=== PATIENT | male | born 1940 | race Caucasian/White ===

== ENCOUNTER 2017-12-04 17:04 | Inpatient (IN) | payer MEDICARE, BC ==
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
[2017-12-04] MEDS ORDERED: HYDROmorphone 2 MG/ML SDV IM ONE (18:03)
[2017-12-04] MEDS ORDERED: HYDROmorphone 2 MG/ML Syringe ONE (18:09)
[2017-12-04] MEDS ORDERED: Cyclobenzaprine 10 MG Tab PO STA (18:56)
--- NOTE | 2017-12-04 19:36 | CT ---
CLINICAL DATA: Back pain. LUMBAR SPINE CT, 2017: Multislice acquisition from T11 to S3 was performed. Axial images and sagittal and coronal reformations are reviewed. There is slight anterior wedging of the T12 vertebra. This is most likely chronic. The remaining vertebrae are of average height. No acute fracture or dislocation. There is a hemilaminectomy defect at the L4 and L5 levels on the right. There is annular bulging of the L1-2, L2-3, and L3-4 discs. There is mild facet joint hypertrophy at all 3 levels. No significant central or foraminal stenosis. There is slight anterolisthesis of L4 on L5. There is minimal annular bulging of the L4-5 disc. There is facet joint hypertrophy at this level. There is mild neural foramen stenosis bilaterally. There is facet joint hypertrophy at the L5-S1 level. There is mild neural foramen stenosis on the right and moderately severe neural foramen stenosis on the left. There are degenerative changes involving the SI joints bilaterally. No other lytic or blastic bone lesions. No other significant findings. Job: [id number] [facility]
[2017-12-04] MEDS: Non-Formulary Medication 1 Each (Allopurinol [Zyloprim] 100 MG) PO SCH (21:22)
[2017-12-04] MEDS: Non-Formulary Medication 1 Each (Furosemide [Lasix] 40 MG) PO SCH (21:22)
[2017-12-04] MEDS: Non-Formulary Medication 1 Each (Losartan [Cozaar] 50 MG) PO SCH (21:23)
[2017-12-05] MEDS ORDERED: Cyclobenzaprine 10 MG Tab ONE (04:19)
[2017-12-05] MEDS: HYDROmorphone 2 MG/ML SDV IM PRN ×3 (04:26→17:45)
[2017-12-05] MEDS: Non-Formulary Medication 1 Each (Furosemide [Lasix] 40 MG) PO SCH (08:09)
[2017-12-05] MEDS: Non-Formulary Medication 1 Each (Allopurinol [Zyloprim] 100 MG) PO SCH ×3 (08:09→20:20)
[2017-12-05] MEDS: Non-Formulary Medication 1 Each (Hydralazine [Apresoline] 50 MG) PO SCH (08:10)
[2017-12-05] MEDS: Non-Formulary Medication 1 Each (Losartan [Cozaar] 50 MG) PO SCH ×2 (08:10→20:20)
[2017-12-05] MEDS: Non-Formulary Medication 1 Each (Warfarin [Coumadin] 5 MG) PO SCH (08:10)
--- NOTE | 2017-12-05 09:43 | PCM.PN ---
- General Info Date of Service: 12/05/17 Subjective Update: Pt claims he still hurts over the lower back. Last night was able to get out of the bed and stand on the bed side and weight bear. But today he claims his left lower back has been hurting, more so with movement. No tinging or numbness in the lower extremities. No weakness. Functional Status: Reports: Pain Controlled, Tolerating Diet, Urinating. Denies : Ambulating - Review of Systems General: Denies: Fever, Weakness, Fatigue, Malaise HEENT: Denies: Sinus Congestion, Sore Throat Pulmonary: Denies: Sputum, Hemoptysis, Wheezing Cardiovascular: Denies: Chest Pain, Lightheadedness Gastrointestinal: Denies: Abdominal Pain, Nausea, Vomiting Genitourinary: Denies: Dysuria, Frequency, Incontinence Musculoskeletal: Reports: Back Pain. Denies: Leg Pain, Foot Pain Skin: Denies: Bruising, Pruritis, Rash Neurological: Denies: Confusion, Dizziness, Headache, Numbness, Tingling - Patient Data Vitals - Most Recent: Last Vital Signs Temp 98 F 12/05/17 08:49 Pulse 62 12/05/17 08:49 Resp 20 12/05/17 08:49 BP 168/66 H 12/05/17 08:49 Pulse Ox 98 12/05/17 08:49 Med Orders - Current: Current Medications Hydromorphone HCl (Dilaudid) 1 mg IM Q6HR PRN PRN Reason: Pain Last Admin: 12/05/17 04:26 Dose: 1 mg Non-Formulary Medication (Allopurinol [Zyloprim]) 100 mg PO TID [facility] Last Admin: 12/05/17 08:09 Dose: 100 mg Non-Formulary Medication (Furosemide [Lasix]) 40 mg PO BID [facility] Last Admin: 12/04/17 21:22 Dose: 40 mg Non-Formulary Medication (Hydralazine [Apresoline]) 50 mg PO DAILY [facility] Last Admin: 12/05/17 08:10 Dose: 50 mg Non-Formulary Medication (Losartan [Cozaar]) 50 mg PO BID [facility] Last Admin: 12/05/17 08:10 Dose: 50 mg Non-Formulary Medication (Warfarin [Coumadin]) 5 mg PO DAILY [facility] Last Admin: 12/05/17 08:10 Dose: 5 mg Discontinued Medications Cyclobenzaprine HCl (Flexeril) 10 mg PO TID [facility] Stop: 12/04/17 18:57 Last Admin: 12/05/17 04:27 Dose: 10 mg Cyclobenzaprine HCl (Flexeril) Confirm Administered Dose 10 mg .ROUTE .STK-MED ONE Stop: 12/05/17 04:20 Last Admin: 12/05/17 07:56 Dose: Not Given Hydromorphone HCl (Dilaudid) 2 mg IM ONETIME ONE Stop: 12/04/17 18:04 Last Admin: 12/04/17 18:05 Dose: 2 mg Hydromorphone HCl (Dilaudid) Confirm Administered Dose 2 mg .ROUTE .STK-MED ONE Stop: 12/04/17 18:10 Last Admin: 12/04/17 18:07 Dose: Not Given - Exam Quality Assessment: Supplemental Oxygen General: Alert, Oriented, Other (morbidly obese) HEENT: Pupils Equal, Pupils Reactive, EOMI, Mucous Membr. Moist/[place] Neck: Supple Lungs: Clear to Auscultation, Normal Respiratory Effort Cardiovascular: Regular Rate, Regular Rhythm Back Exam: Normal Inspection, Full Range of Motion, Paraspinal Tenderness ( lumbar paravertebral tenderness and overt he left SI joint today.), Other (Does have old scar over lumbar spine.). No: CVA Tenderness (R), CVA Tenderness (L), Vertebral Tenderness - Problem List & Annotations (1) Acute low back pain SNOMED Code(s): 040795628 Code(s): M54.5 - LOW BACK PAIN Status: Acute Current Visit: Yes - Problem List Review Problem List Initiated/Reviewed/Updated: Yes - My Orders Last 24 Hours: My Active Orders 12/04/17 18:45 Patient Status [ADT] Routine Bedrest Bedside Commode [RC] ASDIRECTED Height and Weight [RC] UPON Oxygen Therapy [RC] VTE/DVT Education [RC] Per Unit Routine Vital Signs [RC] Q4H PT Evaluation and Treatment [CONS] Routine Resuscitation Status Routine 12/04/17 18:51 Intake and Output [RC] 12/04/17 18:53 HYDROmorphone [Dilaudid] 1 mg IM Q6HR PRN 12/05/17 08:00 Allopurinol [Zyloprim] 100 mg PO TID Furosemide [Lasix] 40 mg PO BID Losartan [Cozaar] 50 mg PO BID Warfarin [Coumadin] 5 mg PO DAILY hydrALAZINE [Apresoline] 50 mg PO DAILY - Assessment Assessment:: Mechanical low back pain- Acute - Plan Plan:: Pt has been on dilaudid and flexeril. The pain severity is so high with movement or weight bearing, that patient is not able to sit up or ambulate yet. His morbid obesity might be a factor with his mobility.He does not have any acute bony injury or neurological injury, appears very much mechanical pain asso with general deconditioning of his body.Will have physical therapy evaluate patient today. Will followup with PT recommendations.
[2017-12-05] MEDS ORDERED: Furosemide 20 MG Tab PO ONE (10:00)
[2017-12-05] MEDS: Furosemide 40 MG Tab **OWN MED PO SCH (18:52)
[2017-12-06] MEDS: Non-Formulary Medication 1 Each (Losartan [Cozaar] 50 MG) PO SCH ×2 (08:06→19:54)
[2017-12-06] MEDS: Non-Formulary Medication 1 Each (Warfarin [Coumadin] 5 MG) PO SCH (08:06)
[2017-12-06] MEDS: Non-Formulary Medication 1 Each (Hydralazine [Apresoline] 50 MG) PO SCH (08:09)
[2017-12-06] MEDS: Non-Formulary Medication 1 Each (Allopurinol [Zyloprim] 100 MG) PO SCH ×3 (08:09→19:54)
[2017-12-06] MEDS: Furosemide 40 MG Tab **OWN MED PO SCH ×3 (08:09→16:21)
[2017-12-06] MEDS: HYDROmorphone 2 MG/ML SDV IM PRN ×2 (08:16→18:19)
--- NOTE | 2017-12-06 08:33 | PCM.PN ---
- General Info Date of Service: 12/06/17 Subjective Update: Pt claims that yesterday he was able to work with physical therapy, did try to walk with walker few step. His back hurts when he stand and walks, but no weakness in the extremities. Pain medications helping.Rates his pain at 4/10 Also he has not had bowel movement in the past 2 days. Functional Status: Reports: Pain Controlled, Tolerating Diet, Ambulating, Urinating - Review of Systems General: Denies: Fever, Weakness, Fatigue, Malaise HEENT: Denies: Headaches, Sinus Congestion, Sore Throat Pulmonary: Denies: Shortness of Breath, Sputum, Hemoptysis Cardiovascular: Denies: Chest Pain, Lightheadedness Gastrointestinal: Reports: Flatus. Denies: Abdominal Pain, Constipation, Nausea , Vomiting Genitourinary: Denies: Dysuria, Frequency Musculoskeletal: Reports: Back Pain. Denies: Leg Pain, Foot Pain, Joint Pain, Joint Swelling Skin: Denies: Bruising, Pruritis, Rash - Patient Data Vitals - Most Recent: Last Vital Signs Temp 98 F 12/06/17 06:00 Pulse 87 12/06/17 06:00 Resp 18 12/06/17 06:00 BP 148/74 H 12/06/17 06:00 Pulse Ox 97 12/06/17 06:00 Weight - Most Recent: 120.769 kg I&O - Last 24 Hours: Intake & Output 12/05/17 12/06/17 12/06/17 22:59 06:59 14:59 Intake Total 1080 550 Output Total 700 1300 Balance 380 -750 Med Orders - Current: Current Medications Cyclobenzaprine HCl (Flexeril) 10 mg PO TID [facility] Furosemide (Lasix) [facility] Last Admin: 12/06/17 08:09 Dose: 40 mg Hydromorphone HCl (Dilaudid) 1 mg IM Q6HR PRN PRN Reason: Pain Last Admin: 12/06/17 08:16 Dose: 1 mg Non-Formulary Medication (Allopurinol [Zyloprim]) 100 mg PO TID [facility] Last Admin: 12/06/17 08:09 Dose: 100 mg Non-Formulary Medication (Hydralazine [Apresoline]) 50 mg PO DAILY [facility] Last Admin: 12/06/17 08:09 Dose: 50 mg Non-Formulary Medication (Losartan [Cozaar]) 50 mg PO BID [facility] Last Admin: 12/06/17 08:06 Dose: 50 mg Non-Formulary Medication (Warfarin [Coumadin]) 5 mg PO DAILY [facility] Last Admin: 12/06/17 08:06 Dose: 2.5 mg Discontinued Medications Cyclobenzaprine HCl (Flexeril) 10 mg PO TID [facility] Stop: 12/04/17 18:57 Last Admin: 12/05/17 04:27 Dose: 10 mg Cyclobenzaprine HCl (Flexeril) Confirm Administered Dose 10 mg .ROUTE .STK-MED ONE Stop: 12/05/17 04:20 Last Admin: 12/05/17 07:56 Dose: Not Given Furosemide (Lasix) 20 mg PO ONETIME ONE Stop: 12/05/17 10:01 Last Admin: 12/05/17 10:39 Dose: 20 mg Hydromorphone HCl (Dilaudid) 2 mg IM ONETIME ONE Stop: 12/04/17 18:04 Last Admin: 12/04/17 18:05 Dose: 2 mg Hydromorphone HCl (Dilaudid) Confirm Administered Dose 2 mg .ROUTE .STK-MED ONE Stop: 12/04/17 18:10 Last Admin: 12/04/17 18:07 Dose: Not Given Non-Formulary Medication (Furosemide [Lasix]) 40 mg PO BID [facility] Last Admin: 12/05/17 08:09 Dose: Not Given - Exam Quality Assessment: Supplemental Oxygen General: Alert, Oriented HEENT: Pupils Equal, Pupils Reactive, EOMI, Mucous Membr. Moist/[place] Neck: Supple Lungs: Clear to Auscultation, Normal Respiratory Effort Cardiovascular: Regular Rate, Regular Rhythm GI/Abdominal Exam: Normal Bowel Sounds, Soft, Non-Tender, No Organomegaly, No Distention, No Abnormal Bruit, No Mass, Pelvis Stable Back Exam: Normal Inspection, Full Range of Motion, Paraspinal Tenderness ( lumbasr paraspinal tenderness). No: CVA Tenderness (R), CVA Tenderness (L) Extremities: Normal Inspection, No Pedal Edema, Normal Capillary Refill Peripheral Pulses: 2+: Posterior Tibial (L), Posterior Tibial (R) Skin: Warm, Intact - Problem List & Annotations (1) Acute low back pain SNOMED Code(s): 858948812 Code(s): M54.5 - LOW BACK PAIN Status: Acute Current Visit: Yes - Problem List Review Problem List Initiated/Reviewed/Updated: Yes - My Orders Last 24 Hours: My Active Orders 12/05/17 08:00 Allopurinol [Zyloprim] 100 mg PO TID Losartan [Cozaar] 50 mg PO BID Warfarin [Coumadin] 5 mg PO DAILY hydrALAZINE [Apresoline] 50 mg PO DAILY 12/05/17 19:00 Furosemide [Lasix] 40 mg PO BIDDIURETIC 12/06/17 08:24 Admission Status [Patient Status] [ADT] Routine 12/06/17 14:00 Cyclobenzaprine [Flexeril] 10 mg PO TID - Assessment Assessment:: Mechanical low back pain- Acute - Plan Plan:: Pt has been on dilaudid and flexeril. The pain severity is so high with movement or weight bearing, that patient is not able to sit up or ambulate yet. His morbid obesity might be a factor with his mobility.He does not have any acute bony injury or neurological injury, appears very much mechanical pain asso with general deconditioning of his body.Will have physical therapy evaluate patient today. Will followup with PT recommendations. 12/06/17 Rate his pain at 4/10. still not able to get up on his own, needs help and has been able to stand and weight bear with walker. Will changes him to full admit for pain control. Also he is constipated from narcotic pain medication. Will give him one dose of senna and start dulcolax at bedtime. Continue physical therapy.
[2017-12-06] MEDS: Cyclobenzaprine 10 MG Tab PO SCH ×3 (08:34→19:54)
[2017-12-06] MEDS ORDERED: Sennosides 8.6 MG Tab ONE (14:34)
[2017-12-06] MEDS: Allopurinol 100 MG Tab ONE (14:43)
[2017-12-06] MEDS: Acetaminophen/HYDROcodone 325-5 MG Tab PO SCH (19:54)
[2017-12-07] MEDS: Acetaminophen/HYDROcodone 325-5 MG Tab PO SCH ×4 (02:00→20:04)
[2017-12-07] MEDS: Cyclobenzaprine 10 MG Tab PO SCH ×3 (07:35→20:05)
[2017-12-07] MEDS: Furosemide 40 MG Tab **OWN MED PO SCH ×2 (07:35→14:32)
[2017-12-07] MEDS ORDERED: Warfarin 5 MG Tab ONE (08:10)
[2017-12-07] MEDS ORDERED: hydrALAZINE 25 MG Tab ONE (08:10)
[2017-12-07] MEDS ORDERED: Losartan 50 MG Tab ONE ×2 (08:10→20:13)
[2017-12-07] MEDS ORDERED: Warfarin 2.5 MG Tab ONE (08:11)
[2017-12-07] MEDS ORDERED: Allopurinol 100 MG Tab ONE ×3 (08:11→20:12)
[2017-12-07] MEDS: Non-Formulary Medication 1 Each (Hydralazine [Apresoline] 50 MG) PO SCH (08:15)
[2017-12-07] MEDS: Non-Formulary Medication 1 Each (Losartan [Cozaar] 50 MG) PO SCH ×2 (08:15→20:14)
[2017-12-07] MEDS: Non-Formulary Medication 1 Each (Allopurinol [Zyloprim] 100 MG) PO SCH ×3 (08:15→20:14)
[2017-12-07] MEDS: Non-Formulary Medication 1 Each (Warfarin [Coumadin] 5 MG) PO SCH (08:15)
--- NOTE | 2017-12-07 11:40 | PCM.PN ---
- General Info Date of Service: 12/07/17 Subjective Update: Pt is sitting in the chair today. he claims that his pain is at 2.10 when he is sitting, any kind of movement make the pain worse and rate close to 8/10 yet. he just had his morning pain meds and flexeril. Has been doing the physical therapy exercises. Needs assistance with ambulation and using the bathroom. Did have bowel movement yesterday. tolerating diet well. Functional Status: Reports: Pain Controlled, Tolerating Diet, Ambulating, Urinating - Review of Systems General: Denies: Fever, Weakness, Fatigue HEENT: Denies: Sinus Congestion, Sore Throat Pulmonary: Denies: Shortness of Breath, Sputum, Hemoptysis Cardiovascular: Denies: Chest Pain, Lightheadedness Gastrointestinal: Denies: Abdominal Pain, Constipation, Hematochezia, Nausea, Vomiting Genitourinary: Denies: Dysuria, Frequency Musculoskeletal: Reports: Back Pain. Denies: Arm Pain, Hand Pain, Leg Pain, Joint Pain, Joint Swelling Skin: Denies: Bruising, Pruritis, Rash Neurological: Denies: Confusion, Dizziness, Headache - Patient Data Vitals - Most Recent: Last Vital Signs Temp 97.8 F 12/07/17 09:16 Pulse 63 12/07/17 09:16 Resp 20 12/07/17 09:16 BP 154/82 H 12/07/17 09:16 Pulse Ox 96 12/07/17 09:16 Weight - Most Recent: 121.291 kg I&O - Last 24 Hours: Intake & Output 12/06/17 12/07/17 12/07/17 22:59 06:59 14:59 Intake Total 250 Output Total 425 1000 Balance -425 -750 Med Orders - Current: Current Medications Hydrocodone Bitart/Acetaminophen ([place] 325-5 Mg) 1 tab PO Q6H [facility] Last Admin: 12/07/17 07:35 Dose: 1 tab Bisacodyl (Dulcolax) 10 mg PO BEDTIME JEFFREY Cyclobenzaprine HCl (Flexeril) 10 mg PO TID [facility] Last Admin: 12/07/17 07:35 Dose: 10 mg Furosemide (Lasix) 40 mg PO BIDDIURETIC [facility] Last Admin: 12/07/17 07:35 Dose: 40 mg Hydromorphone HCl (Dilaudid) 1 mg IM Q6HR PRN PRN Reason: Pain Last Admin: 12/06/17 18:19 Dose: 1 mg Non-Formulary Medication (Allopurinol [Zyloprim]) 100 mg PO TID [facility] Last Admin: 12/07/17 08:15 Dose: 100 mg Non-Formulary Medication (Hydralazine [Apresoline]) 50 mg PO DAILY [facility] Last Admin: 12/07/17 08:15 Dose: 50 mg Non-Formulary Medication (Losartan [Cozaar]) 50 mg PO BID [facility] Last Admin: 12/07/17 08:15 Dose: 50 mg Non-Formulary Medication (Warfarin [Coumadin]) 5 mg PO DAILY [facility] Last Admin: 12/07/17 08:15 Dose: 5 mg Discontinued Medications Allopurinol (Zyloprim) Confirm Administered Dose 100 mg .ROUTE .STK-MED ONE Stop: 12/06/17 14:37 Last Admin: 12/06/17 14:43 Dose: Not Given Allopurinol (Zyloprim) Confirm Administered Dose 100 mg .ROUTE .STK-MED ONE Stop: 12/07/17 08:12 Last Admin: 12/07/17 09:08 Dose: Not Given Cyclobenzaprine HCl (Flexeril) 10 mg PO TID STA Stop: 12/04/17 18:57 Last Admin: 12/05/17 04:27 Dose: 10 mg Cyclobenzaprine HCl (Flexeril) Confirm Administered Dose 10 mg .ROUTE .STK-MED ONE Stop: 12/05/17 04:20 Last Admin: 12/05/17 07:56 Dose: Not Given Furosemide (Lasix) 20 mg PO ONETIME ONE Stop: 12/05/17 10:01 Last Admin: 12/05/17 10:39 Dose: 20 mg Hydralazine HCl (Apresoline) Confirm Administered Dose 50 mg .ROUTE .STK-MED ONE Stop: 12/07/17 08:11 Last Admin: 12/07/17 09:08 Dose: Not Given Hydromorphone HCl (Dilaudid) 2 mg IM ONETIME ONE Stop: 12/04/17 18:04 Last Admin: 12/04/17 18:05 Dose: 2 mg Hydromorphone HCl (Dilaudid) Confirm Administered Dose 2 mg .ROUTE .STK-MED ONE Stop: 12/04/17 18:10 Last Admin: 12/04/17 18:07 Dose: Not Given Losartan Potassium (Cozaar) Confirm Administered Dose 50 mg .ROUTE .STK-MED ONE Stop: 12/07/17 08:11 Last Admin: 12/07/17 09:08 Dose: Not Given Non-Formulary Medication (Furosemide [Lasix]) 40 mg PO BID [facility] Last Admin: 12/05/17 08:09 Dose: Not Given Senna (Senna) Confirm Administered Dose 8.6 mg .ROUTE .STK-MED ONE Stop: 12/06/17 14:35 Last Admin: 12/06/17 14:38 Dose: 8.6 mg Senna/Docusate Sodium (Senna Plus) 1 tab PO ONETIME ONE Stop: 12/06/17 08:40 Last Admin: 12/06/17 14:40 Dose: 1 tab Senna/Docusate Sodium (Senna Plus) 1 tab PO DAILY JEFFREY Stop: 12/06/17 12:00 Last Admin: 12/06/17 14:41 Dose: Not Given Warfarin Sodium (Coumadin) Confirm Administered Dose 5 mg .ROUTE .STK-MED ONE Stop: 12/07/17 08:11 Last Admin: 12/07/17 09:08 Dose: Not Given Warfarin Sodium (Coumadin) Confirm Administered Dose 2.5 mg .ROUTE .STK-MED ONE Stop: 12/07/17 08:12 Last Admin: 12/07/17 09:08 Dose: Not Given - Exam Quality Assessment: Supplemental Oxygen General: Alert, Oriented, Other (obese) HEENT: Pupils Equal, Pupils Reactive, EOMI, Mucous Membr. Moist/[place] Neck: Supple Lungs: Clear to Auscultation, Normal Respiratory Effort Cardiovascular: Regular Rate, Regular Rhythm GI/Abdominal Exam: Normal Bowel Sounds, Soft, Non-Tender, No Organomegaly, No Distention, No Abnormal Bruit, No Mass, Pelvis Stable Back Exam: Normal Inspection, Full Range of Motion, Decreased Range of Motion, Paraspinal Tenderness (lumbar worse on left side. ). No: CVA Tenderness (R), CVA Tenderness (L) Extremities: Normal Inspection, Normal Range of Motion, Non-Tender, No Pedal Edema, Normal Capillary Refill - Problem List & Annotations (1) Acute low back pain SNOMED Code(s): 961337983 Code(s): M54.5 - LOW BACK PAIN Status: Acute Current Visit: Yes - Problem List Review Problem List Initiated/Reviewed/Updated: Yes - My Orders Last 24 Hours: My Active Orders 12/06/17 14:00 Cyclobenzaprine [Flexeril] 10 mg PO TID 12/06/17 20:00 Acetaminophen/HYDROcodone [[place] 325-5 MG] 1 tab PO Q6H 12/07/17 20:00 Bisacodyl [Dulcolax] 10 mg PO BEDTIME - Assessment Assessment:: Mechanical low back pain- Acute - Plan Plan:: Pt has been on dilaudid and flexeril. The pain severity is so high with movement or weight bearing, that patient is not able to sit up or ambulate yet. His morbid obesity might be a factor with his mobility.He does not have any acute bony injury or neurological injury, appears very much mechanical pain asso with general deconditioning of his body.Will have physical therapy evaluate patient today. Will followup with PT recommendations. 12/06/17 Rate his pain at 4/10. still not able to get up on his own, needs help and has been able to stand and weight bear with walker. Will changes him to full admit for pain control. Also he is constipated from narcotic pain medication. Will give him one dose of senna and start dulcolax at bedtime. Continue physical therapy. 12/07/17 Pt has been feeling better. rate 2/10 while resting and get to 8/10 with movement. he has had bowel movement. Have started him on oral vicodin and will have dilaudid im as needed. Also has been started on flexeril 10mg TID. Pain seems to be getting under control. Encouraged patient to continue to do therapy. he still needs assistance with ambulation.
[2017-12-07] MEDS: Bisacodyl 5 MG Tab PO SCH (20:05)
[2017-12-08] MEDS: Acetaminophen/HYDROcodone 325-5 MG Tab PO SCH ×4 (02:12→19:41)
[2017-12-08] MEDS ORDERED: hydrALAZINE 25 MG Tab ONE (08:02)
[2017-12-08] MEDS ORDERED: Losartan 50 MG Tab ONE (08:02)
[2017-12-08] MEDS ORDERED: Warfarin 5 MG Tab ONE (08:02)
[2017-12-08] MEDS ORDERED: Allopurinol 100 MG Tab ONE ×2 (08:03→13:58)
[2017-12-08] MEDS: Cyclobenzaprine 10 MG Tab PO SCH ×3 (08:05→19:40)
[2017-12-08] MEDS: Furosemide 40 MG Tab **OWN MED PO SCH ×2 (08:05→16:25)
[2017-12-08] MEDS: Non-Formulary Medication 1 Each (Warfarin [Coumadin] 5 MG) PO SCH (08:05)
[2017-12-08] MEDS: Non-Formulary Medication 1 Each (Losartan [Cozaar] 50 MG) PO SCH ×2 (08:05→19:41)
[2017-12-08] MEDS: Non-Formulary Medication 1 Each (Allopurinol [Zyloprim] 100 MG) PO SCH ×3 (08:05→19:40)
[2017-12-08] MEDS: Non-Formulary Medication 1 Each (Hydralazine [Apresoline] 50 MG) PO SCH (08:05)
--- NOTE | 2017-12-08 10:09 | PCM.PN ---
- General Info Date of Service: 12/08/17 Subjective Update: Pt claims he is feeling better. Was able to walk to bath room and back, but his pain goes from 2/10 to 7-8/10 by the time he is back in the bed. But better while resting. Claims he has been feeling better, has got better mobility then he came in. No weakness or tingling in his legs. Does therapy exercises in the bed and sitting in his chair. Functional Status: Reports: Pain Controlled, Tolerating Diet, Ambulating, Urinating - Review of Systems General: Denies: Fever, Weakness, Fatigue HEENT: Denies: Headaches Pulmonary: Denies: Sputum, Hemoptysis Cardiovascular: Denies: Chest Pain, Palpitations, Lightheadedness Gastrointestinal: Denies: Abdominal Pain, Nausea, Vomiting Genitourinary: Denies: Dysuria, Frequency Musculoskeletal: Reports: Back Pain. Denies: Shoulder Pain, Leg Pain, Joint Pain, Joint Swelling Skin: Denies: Bruising, Pruritis, Rash Neurological: Denies: Confusion, Dizziness, Headache - Patient Data Vitals - Most Recent: Last Vital Signs Temp 97.8 F 12/08/17 08:00 Pulse 60 12/08/17 08:00 Resp 20 12/08/17 08:00 BP 169/65 H 12/08/17 08:00 Pulse Ox 94 L 12/08/17 08:00 Weight - Most Recent: 119.295 kg I&O - Last 24 Hours: Intake & Output 12/07/17 12/08/17 12/08/17 22:59 06:59 14:59 Intake Total 760 500 Output Total 1250 1200 Balance -490 -700 Med Orders - Current: Current Medications Hydrocodone Bitart/Acetaminophen ([place] 325-5 Mg) 1 tab PO Q6H [facility] Last Admin: 12/08/17 08:05 Dose: 1 tab Bisacodyl (Dulcolax) 10 mg PO BEDTIME [facility] Last Admin: 12/07/17 20:05 Dose: 10 mg Cyclobenzaprine HCl (Flexeril) 10 mg PO TID [facility] Last Admin: 12/08/17 08:05 Dose: 10 mg Furosemide (Lasix) 40 mg PO BIDDIURETIC [facility] Last Admin: 12/08/17 08:05 Dose: 40 mg Hydromorphone HCl (Dilaudid) 1 mg IM Q6HR PRN PRN Reason: Pain Last Admin: 12/06/17 18:19 Dose: 1 mg Non-Formulary Medication (Allopurinol [Zyloprim]) 100 mg PO TID [facility] Last Admin: 12/08/17 08:05 Dose: 100 mg Non-Formulary Medication (Hydralazine [Apresoline]) 50 mg PO DAILY [facility] Last Admin: 12/08/17 08:05 Dose: 50 mg Non-Formulary Medication (Losartan [Cozaar]) 50 mg PO BID [facility] Last Admin: 12/08/17 08:05 Dose: 50 mg Non-Formulary Medication (Warfarin [Coumadin]) 5 mg PO DAILY [facility] Last Admin: 12/08/17 08:05 Dose: 5 mg Discontinued Medications Allopurinol (Zyloprim) Confirm Administered Dose 100 mg .ROUTE .STK-MED ONE Stop: 12/06/17 14:37 Last Admin: 12/06/17 14:43 Dose: Not Given Allopurinol (Zyloprim) Confirm Administered Dose 100 mg .ROUTE .STK-MED ONE Stop: 12/07/17 08:12 Last Admin: 12/07/17 09:08 Dose: Not Given Allopurinol (Zyloprim) Confirm Administered Dose 100 mg .ROUTE .STK-MED ONE Stop: 12/07/17 14:32 Last Admin: 12/07/17 15:07 Dose: Not Given Allopurinol (Zyloprim) Confirm Administered Dose 100 mg .ROUTE .STK-MED ONE Stop: 12/07/17 20:13 Last Admin: 12/07/17 20:47 Dose: Not Given Allopurinol (Zyloprim) Confirm Administered Dose 100 mg .ROUTE .STK-MED ONE Stop: 12/08/17 08:04 Last Admin: 12/08/17 09:25 Dose: Not Given Cyclobenzaprine HCl (Flexeril) 10 mg PO TID STA Stop: 12/04/17 18:57 Last Admin: 12/05/17 04:27 Dose: 10 mg Cyclobenzaprine HCl (Flexeril) Confirm Administered Dose 10 mg .ROUTE .STK-MED ONE Stop: 12/05/17 04:20 Last Admin: 12/05/17 07:56 Dose: Not Given Furosemide (Lasix) 20 mg PO ONETIME ONE Stop: 12/05/17 10:01 Last Admin: 12/05/17 10:39 Dose: 20 mg Hydralazine HCl (Apresoline) Confirm Administered Dose 50 mg .ROUTE .STK-MED ONE Stop: 12/07/17 08:11 Last Admin: 12/07/17 09:08 Dose: Not Given Hydralazine HCl (Apresoline) Confirm Administered Dose 50 mg .ROUTE .STK-MED ONE Stop: 12/08/17 08:03 Last Admin: 12/08/17 09:24 Dose: Not Given Hydromorphone HCl (Dilaudid) 2 mg IM ONETIME ONE Stop: 12/04/17 18:04 Last Admin: 12/04/17 18:05 Dose: 2 mg Hydromorphone HCl (Dilaudid) Confirm Administered Dose 2 mg .ROUTE .STK-MED ONE Stop: 12/04/17 18:10 Last Admin: 12/04/17 18:07 Dose: Not Given Losartan Potassium (Cozaar) Confirm Administered Dose 50 mg .ROUTE .STK-MED ONE Stop: 12/07/17 08:11 Last Admin: 12/07/17 09:08 Dose: Not Given Losartan Potassium (Cozaar) Confirm Administered Dose 50 mg .ROUTE .STK-MED ONE Stop: 12/07/17 20:14 Last Admin: 12/07/17 20:47 Dose: Not Given Losartan Potassium (Cozaar) Confirm Administered Dose 50 mg .ROUTE .STK-MED ONE Stop: 12/08/17 08:03 Last Admin: 12/08/17 09:25 Dose: Not Given Non-Formulary Medication (Furosemide [Lasix]) 40 mg PO BID [facility] Last Admin: 12/05/17 08:09 Dose: Not Given Senna (Senna) Confirm Administered Dose 8.6 mg .ROUTE .STK-MED ONE Stop: 12/06/17 14:35 Last Admin: 12/06/17 14:38 Dose: 8.6 mg Senna/Docusate Sodium (Senna Plus) 1 tab PO ONETIME ONE Stop: 12/06/17 08:40 Last Admin: 12/06/17 14:40 Dose: 1 tab Senna/Docusate Sodium (Senna Plus) 1 tab PO DAILY [facility] Stop: 12/06/17 12:00 Last Admin: 12/06/17 14:41 Dose: Not Given Warfarin Sodium (Coumadin) Confirm Administered Dose 5 mg .ROUTE .STK-MED ONE Stop: 12/07/17 08:11 Last Admin: 12/07/17 09:08 Dose: Not Given Warfarin Sodium (Coumadin) Confirm Administered Dose 2.5 mg .ROUTE .STK-MED ONE Stop: 12/07/17 08:12 Last Admin: 12/07/17 09:08 Dose: Not Given Warfarin Sodium (Coumadin) Confirm Administered Dose 5 mg .ROUTE .STK-MED ONE Stop: 12/08/17 08:03 Last Admin: 12/08/17 09:24 Dose: Not Given - Exam Quality Assessment: Supplemental Oxygen General: Alert, Oriented, Cooperative, Other (morbidly obese) HEENT: Pupils Equal, Pupils Reactive, EOMI Neck: Supple Lungs: Clear to Auscultation, Normal Respiratory Effort Cardiovascular: Regular Rate, Regular Rhythm Back Exam: Normal Inspection, Full Range of Motion, Decreased Range of Motion, Paraspinal Tenderness (lumbar parapsinal tenderness still reent, but defintely imrpoved.) Extremities: Normal Inspection, Normal Range of Motion, Normal Capillary Refill Skin: Warm, Intact - Problem List & Annotations (1) Acute low back pain SNOMED Code(s): 424972543 Code(s): M54.5 - LOW BACK PAIN Status: Acute Current Visit: Yes - Problem List Review Problem List Initiated/Reviewed/Updated: Yes - My Orders Last 24 Hours: My Active Orders 12/07/17 20:00 Bisacodyl [Dulcolax] 10 mg PO BEDTIME - Assessment Assessment:: Mechanical low back pain- Acute: improving - Plan Plan:: Pt has been on dilaudid and flexeril. The pain severity is so high with movement or weight bearing, that patient is not able to sit up or ambulate yet. His morbid obesity might be a factor with his mobility.He does not have any acute bony injury or neurological injury, appears very much mechanical pain asso with general deconditioning of his body.Will have physical therapy evaluate patient today. Will followup with PT recommendations. 12/06/17 Rate his pain at 4/10. still not able to get up on his own, needs help and has been able to stand and weight bear with walker. Will changes him to full admit for pain control. Also he is constipated from narcotic pain medication. Will give him one dose of senna and start dulcolax at bedtime. Continue physical therapy. 12/07/17 Pt has been feeling better. rate 2/10 while resting and get to 8/10 with movement. he has had bowel movement. Have started him on oral vicodin and will have dilaudid im as needed. Also has been started on flexeril 10mg TID. Pain seems to be getting under control. Encouraged patient to continue to do therapy. he still needs assistance with ambulation. 12/08/17 Pt definitely has improved, able to transfer and ambulate short distance. Pain is down to 7-8 at the worse and 2/10 at best. Will continue present regime. Stressed to patient that he should continue therapy exercise.PT will revisit patient in Am.
[2017-12-08] MEDS: Allopurinol 100 MG Tab ONE (13:58)
[2017-12-08] MEDS: Bisacodyl 5 MG Tab PO SCH (19:40)
[2017-12-09] MEDS: Acetaminophen/HYDROcodone 325-5 MG Tab PO SCH ×2 (07:00→07:56)
[2017-12-09] MEDS: Furosemide 40 MG Tab **OWN MED PO SCH (07:57)
[2017-12-09] MEDS: Cyclobenzaprine 10 MG Tab PO SCH (07:58)
[2017-12-09] MEDS: Non-Formulary Medication 1 Each (Warfarin [Coumadin] 5 MG) PO SCH ×2 (07:59→08:09)
[2017-12-09] MEDS: Non-Formulary Medication 1 Each (Losartan [Cozaar] 50 MG) PO SCH (07:59)
[2017-12-09] MEDS: Non-Formulary Medication 1 Each (Hydralazine [Apresoline] 50 MG) PO SCH (07:59)
[2017-12-09] MEDS: Non-Formulary Medication 1 Each (Allopurinol [Zyloprim] 100 MG) PO SCH (07:59)
--- NOTE | 2017-12-09 11:28 | PCM.DCSUM1 ---
Discharge Summary - Hospital Course Free Text/Narrative:: Pt was admitted initially for observation for hsi acute severe low back pain. Pain was debilitating and pt could not move. He was placed on dilauidid 1mg every 8 hr with request for physical therapy evaluation. On Day 1 pt was able to move around int he bed, and also able to stand on the bedside with walker, but not able to walk. Therapy evaluation was done for mechanical back pain. Day 2 Pt's pain has improve some, was able to walk with walker and assistance. rated pain stil at 10/10 with movement and standing. Vicodin orally every 6 hrs was added and also flexeril 10mg TID was started to help with muscle spasms. Over the week end, pt has been able to walk with walker and assistance. He has improved, but not good enough to be discharged home at this point. Still rating his pain around 6-7/10. Might needs some low back strengthening and conditioning. Hence I am changing patient to swing bed level of care today for more of phycial therapy and pain control. HPI Initial Comments: Pt claims his low back pain has improved. AHs been ambulating with assistance. No tingling or numbness. Rates pain at 2/10 while resting and 6-7/10 when standing or walking. Brief History: Pt presented to the emergency room 12/04/17 by EMS as he was not able to move out of the bed for whole day after having chiropractor manipulation on 12/02/17 for a low back pain he has had for 3 wks. Pt had severe low back spasm and was admitted for pain control and Physical therapy eval. kindly see H&P for details. Diagnosis: Stroke: No - Discharge Data Discharge Date: 12/09/17 Discharge Disposition: DC/Tfer W/I Hosp To [place] [id number] Condition: Good - Discharge Diagnosis/Problem(s) (1) Acute low back pain SNOMED Code(s): 854154392 ICD Code: M54.5 - LOW BACK PAIN Status: Acute Current Visit: Yes - Patient Summary/Data Consults: Consultations 12/04/17 18:45 PT Evaluation and Treatment [CONS] Routine Please Evaluate and Treat. PT Reason for Consult: Ambulation This query below is only for informational purposes and is not editable. - Patient Instructions Diet: Heart Healthy Diet Fluid Restriction: 1500 mL Activity: As Tolerated Showering/Bathing: July Shower - Discharge Plan *PRESCRIPTION DRUG MONITORING PROGRAM REVIEWED*: Not Applicable *COPY OF PRESCRIPTION DRUG MONITORING REPORT IN PATIENT NOAH: Not Applicable Home Medications: Home Meds Allopurinol [Zyloprim] 100 mg PO TID 12/04/17 [History] Furosemide [Lasix] 40 mg PO BID 12/04/17 [History] Losartan [Cozaar] 50 mg PO BID 12/04/17 [History] Warfarin [Coumadin] 5 mg PO DAILY 12/04/17 [History] hydrALAZINE [Apresoline] 50 mg PO DAILY 12/04/17 [History] Acetaminophen/HYDROcodone [[place] 325-5 MG] 1 tab PO Q6H tablet 12/09/17 [Rx] Bisacodyl [Dulcolax] 10 mg PO BEDTIME tablet 12/09/17 [Rx] Furosemide [Lasix] 40 mg PO BIDDIURETIC tablet 12/09/17 [Rx] HYDROmorphone [Dilaudid] 1 mg IM Q6HR PRN sdv 12/09/17 [Rx] Warfarin Sodium 2.5 mg PO DAILY 12/09/17 [History] Warfarin [Coumadin] 2.5 mg PO DAILY 12/09/17 [History] Referrals: PCP,None [Primary Care Provider] - - Discharge Summary/Plan Comment DC Time >30 min.: Yes Discharge Summary/Plan Comment: Use this as admit note for swing bed admission - General Info Date of Service: 12/09/17 Functional Status: Reports: Pain Controlled, Tolerating Diet, Ambulating, Urinating - Review of Systems General: Denies: Fever, Weakness, Fatigue HEENT: Denies: Headaches, Sinus Congestion, Visual Changes Pulmonary: Denies: Cough, Sputum Cardiovascular: Denies: Chest Pain, Lightheadedness Gastrointestinal: Denies: Abdominal Pain, Constipation, Diarrhea, Nausea, Vomiting Genitourinary: Denies: Dysuria, Frequency Musculoskeletal: Reports: Back Pain. Denies: Arm Pain, Joint Pain, Joint Swelling Skin: Denies: Bruising, Pruritis, Rash Neurological: Denies: Confusion, Dizziness, Headache, Numbness - Patient Data Vitals - Most Recent: Last Vital Signs Temp 96.9 F 12/09/17 07:37 Pulse 59 L 12/09/17 07:37 Resp 18 12/09/17 07:37 BP 162/87 H 12/09/17 07:37 Pulse Ox 98 12/09/17 07:37 Weight - Most Recent: 118.115 kg I&O - Last 24 hours: Intake & Output 12/08/17 12/09/17 12/09/17 22:59 06:59 14:59 Intake Total 680 300 Output Total 1400 950 250 Balance -720 -650 -250 Med Orders - Current: Current Medications Hydrocodone Bitart/Acetaminophen ([place] 325-5 Mg) 1 tab PO Q6H [facility] Last Admin: 12/09/17 07:56 Dose: 1 tab Bisacodyl (Dulcolax) 10 mg PO BEDTIME [facility] Last Admin: 12/08/17 19:40 Dose: 10 mg Cyclobenzaprine HCl (Flexeril) 10 mg PO TID [facility] Last Admin: 12/09/17 07:58 Dose: 10 mg Furosemide (Lasix) 40 mg PO BIDDIURETIC [facility] Last Admin: 12/09/17 07:57 Dose: 40 mg Hydromorphone HCl (Dilaudid) 1 mg IM Q6HR PRN PRN Reason: Pain Last Admin: 12/06/17 18:19 Dose: 1 mg Non-Formulary Medication (Allopurinol [Zyloprim]) 100 mg PO TID [facility] Last Admin: 12/09/17 07:59 Dose: 100 mg Non-Formulary Medication (Hydralazine [Apresoline]) 50 mg PO DAILY [facility] Last Admin: 12/09/17 07:59 Dose: 50 mg Non-Formulary Medication (Losartan [Cozaar]) 50 mg PO BID [facility] Last Admin: 12/09/17 07:59 Dose: 50 mg Non-Formulary Medication (Warfarin [Coumadin]) 5 mg PO DAILY [facility] Last Admin: 12/09/17 08:09 Dose: 2.5 mg Discontinued Medications Allopurinol (Zyloprim) Confirm Administered Dose 100 mg .ROUTE .STK-MED ONE Stop: 12/06/17 14:37 Last Admin: 12/06/17 14:43 Dose: Not Given Allopurinol (Zyloprim) Confirm Administered Dose 100 mg .ROUTE .STK-MED ONE Stop: 12/07/17 08:12 Last Admin: 12/07/17 09:08 Dose: Not Given Allopurinol (Zyloprim) Confirm Administered Dose 100 mg .ROUTE .STK-MED ONE Stop: 12/07/17 14:32 Last Admin: 12/07/17 15:07 Dose: Not Given Allopurinol (Zyloprim) Confirm Administered Dose 100 mg .ROUTE .STK-MED ONE Stop: 12/07/17 20:13 Last Admin: 12/07/17 20:47 Dose: Not Given Allopurinol (Zyloprim) Confirm Administered Dose 100 mg .ROUTE .STK-MED ONE Stop: 12/08/17 08:04 Last Admin: 12/08/17 09:25 Dose: Not Given Allopurinol (Zyloprim) Confirm Administered Dose 100 mg .ROUTE .STK-MED ONE Stop: 12/08/17 13:59 Last Admin: 12/08/17 14:41 Dose: Not Given Cyclobenzaprine HCl (Flexeril) 10 mg PO TID STA Stop: 12/04/17 18:57 Last Admin: 12/05/17 04:27 Dose: 10 mg Cyclobenzaprine HCl (Flexeril) Confirm Administered Dose 10 mg .ROUTE .STK-MED ONE Stop: 12/05/17 04:20 Last Admin: 12/05/17 07:56 Dose: Not Given Furosemide (Lasix) 20 mg PO ONETIME ONE Stop: 12/05/17 10:01 Last Admin: 12/05/17 10:39 Dose: 20 mg Hydralazine HCl (Apresoline) Confirm Administered Dose 50 mg .ROUTE .STK-MED ONE Stop: 12/07/17 08:11 Last Admin: 12/07/17 09:08 Dose: Not Given Hydralazine HCl (Apresoline) Confirm Administered Dose 50 mg .ROUTE .STK-MED ONE Stop: 12/08/17 08:03 Last Admin: 12/08/17 09:24 Dose: Not Given Hydromorphone HCl (Dilaudid) 2 mg IM ONETIME ONE Stop: 12/04/17 18:04 Last Admin: 12/04/17 18:05 Dose: 2 mg Hydromorphone HCl (Dilaudid) Confirm Administered Dose 2 mg .ROUTE .STK-MED ONE Stop: 12/04/17 18:10 Last Admin: 12/04/17 18:07 Dose: Not Given Losartan Potassium (Cozaar) Confirm Administered Dose 50 mg .ROUTE .STK-MED ONE Stop: 12/07/17 08:11 Last Admin: 12/07/17 09:08 Dose: Not Given Losartan Potassium (Cozaar) Confirm Administered Dose 50 mg .ROUTE .STK-MED ONE Stop: 12/07/17 20:14 Last Admin: 12/07/17 20:47 Dose: Not Given Losartan Potassium (Cozaar) Confirm Administered Dose 50 mg .ROUTE .STK-MED ONE Stop: 12/08/17 08:03 Last Admin: 12/08/17 09:25 Dose: Not Given Non-Formulary Medication (Furosemide [Lasix]) 40 mg PO BID [facility] Last Admin: 12/05/17 08:09 Dose: Not Given Senna (Senna) Confirm Administered Dose 8.6 mg .ROUTE .STK-MED ONE Stop: 12/06/17 14:35 Last Admin: 12/06/17 14:38 Dose: 8.6 mg Senna/Docusate Sodium (Senna Plus) 1 tab PO ONETIME ONE Stop: 12/06/17 08:40 Last Admin: 12/06/17 14:40 Dose: 1 tab Senna/Docusate Sodium (Senna Plus) 1 tab PO DAILY [facility] Stop: 12/06/17 12:00 Last Admin: 12/06/17 14:41 Dose: Not Given Warfarin Sodium (Coumadin) Confirm Administered Dose 5 mg .ROUTE .STK-MED ONE Stop: 12/07/17 08:11 Last Admin: 12/07/17 09:08 Dose: Not Given Warfarin Sodium (Coumadin) Confirm Administered Dose 2.5 mg .ROUTE .STK-MED ONE Stop: 12/07/17 08:12 Last Admin: 12/07/17 09:08 Dose: Not Given Warfarin Sodium (Coumadin) Confirm Administered Dose 5 mg .ROUTE .STK-MED ONE Stop: 12/08/17 08:03 Last Admin: 12/08/17 09:24 Dose: Not Given - Exam Quality Assessment: Reports: Supplemental Oxygen General: Reports: Alert, Oriented, Cooperative HEENT: Reports: Pupils Equal, Pupils Reactive, EOMI, Mucous Membr. Moist/[place] Neck: Reports: Supple Lungs: Reports: Clear to Auscultation, Normal Respiratory Effort Cardiovascular: Reports: Regular Rate, Regular Rhythm Back Exam: Reports: Normal Inspection, Full Range of Motion, Muscle Spasm, Paraspinal Tenderness (lumbar worse over the left side). Denies: CVA Tenderness (R), CVA Tenderness (L), Vertebral Tenderness Extremities: Normal Inspection, Normal Range of Motion, Non-Tender, No Pedal Edema, Normal Capillary Refill Skin: Reports: Warm, Intact Neurological: Reports: No New Focal Deficit Psy/Mental Status: Reports: Alert, Normal Affect, Normal Mood
== END 2017-12-09 11:50 | disposition swing bed (61) | DRG 552 ==
LOC: LB.ED 17:04 → LB.MS 18:30 → UNDOADMOB 18:30 → LB.MS 18:45 → OBSVTOIN 12-06 08:24
PROVIDERS: ADMIT Physician Assistant; ATTEND Family Medicine
DX: M54.5 Low back pain (principal); Z68.41 Body mass index [BMI] 40.0-44.9, adult; E66.01 Morbid (severe) obesity due to excess calories; Z91.81 History of falling; K59.03 Drug induced constipation; Z79.01 Long term (current) use of anticoagulants; Z88.2 Allergy status to sulfonamides
CPT/HCPCS: 72131; 96372; 97110-GP; 97161-GP; 97530-GP; 99284-25; A9270-GY; G0378; J1170

== ENCOUNTER 2017-12-09 11:50 | Inpatient (IN) | payer MEDICARE, BC ==
[2017-12-09] MEDS ORDERED: Tuberculin, PPD 5 Units/0.1 ML 1 ML MDV IDERM ONE (13:33)
[2017-12-09] MEDS ORDERED: HYDROmorphone 2 MG/ML SDV IM PRN (13:35)
[2017-12-09] MEDS ORDERED: Cyclobenzaprine 10 MG Tab ONE (14:57)
[2017-12-09] MEDS: Acetaminophen/HYDROcodone 325-5 MG Tab PO SCH ×3 (16:02→20:00)
[2017-12-09] MEDS: Furosemide 40 MG Tab PO SCH (16:08)
[2017-12-09] MEDS: Losartan 50 MG Tab PO SCH (20:23)
[2017-12-09] MEDS: Bisacodyl 5 MG Tab PO SCH (20:24)
[2017-12-09] MEDS: Allopurinol 100 MG Tab PO SCH ×2 (20:25)
[2017-12-10] MEDS: Acetaminophen/HYDROcodone 325-5 MG Tab PO SCH ×3 (02:00→13:40)
[2017-12-10] MEDS: Furosemide 40 MG Tab PO SCH ×2 (07:54→15:38)
[2017-12-10] MEDS: hydrALAZINE 25 MG Tab PO SCH (07:55)
[2017-12-10] MEDS: Allopurinol 100 MG Tab PO SCH ×3 (07:56→19:49)
[2017-12-10] MEDS: Losartan 50 MG Tab PO SCH ×2 (07:56→19:48)
[2017-12-10] MEDS ORDERED: Warfarin 2.5 MG Tab PO SCH (08:00)
[2017-12-10] MEDS: Warfarin 5 MG Tab PO SCH (17:39)
[2017-12-10] MEDS: Acetaminophen/HYDROcodone 325-5 MG Tab PO PRN (19:49)
[2017-12-10] MEDS: Bisacodyl 5 MG Tab PO SCH (19:49)
[2017-12-11] MEDS: Furosemide 40 MG Tab PO SCH ×2 (07:58→16:02)
[2017-12-11] MEDS: Losartan 50 MG Tab PO SCH ×2 (07:58→20:24)
[2017-12-11] MEDS: hydrALAZINE 25 MG Tab PO SCH (07:58)
[2017-12-11] MEDS: Allopurinol 100 MG Tab PO SCH ×3 (07:58→20:24)
[2017-12-11] MEDS: Acetaminophen/HYDROcodone 325-5 MG Tab PO PRN (11:22)
[2017-12-11] MEDS ORDERED: Warfarin 2.5 MG Tab PO SCH (18:00)
[2017-12-11] MEDS: Bisacodyl 5 MG Tab PO SCH (20:24)
[2017-12-12] MEDS: hydrALAZINE 25 MG Tab PO SCH (07:50)
[2017-12-12] MEDS: Allopurinol 100 MG Tab PO SCH (07:51)
[2017-12-12] MEDS: Losartan 50 MG Tab PO SCH (07:51)
[2017-12-12] MEDS: Furosemide 40 MG Tab PO SCH (07:51)
[2017-12-12] MEDS: Acetaminophen/HYDROcodone 325-5 MG Tab PO PRN (07:55)
[2017-12-12] MEDS: Warfarin 5 MG Tab PO SCH (12:40)
== END 2017-12-12 12:46 | disposition home or self-care (01) | DRG 552 ==
LOC: LB.MS 11:50 → UNDOADMIN 11:50 → LB.MS 13:33
PROVIDERS: ADMIT Family Medicine; ATTEND Family Medicine
DX: M54.5 Low back pain (principal); M62.838 Other muscle spasm; Z79.899 Other long term (current) drug therapy; Z79.01 Long term (current) use of anticoagulants
CPT/HCPCS: 85610; 86580; 97110-GP; 97116-GP; 97165-GO; 97530-GO; 97530-GP; 97535-GO; A9270-GY

== ENCOUNTER 2018-07-18 14:07 | Inpatient (IN) | payer MEDICARE, BC ==
[2018-07-18] MEDS ORDERED: Sodium Chloride 0.9% 10 ML Syringe FLUSH PRN (14:45)
[2018-07-18] MEDS ORDERED: Sodium Chloride 0.9% 1,000 ML IV SCH (14:45)
[2018-07-18] MEDS ORDERED: methylPREDNISolone Sodium Succinate 125 MG/2 ML SDV IVPUSH ONE (14:51)
[2018-07-18] MEDS ORDERED: Furosemide 40 MG/4 ML VIAL IVPUSH ONE (14:52)
[2018-07-18] MEDS: Albuterol/Ipratropium 3.0-0.5 MG/3 ML Neb Soln NEB SCH ×2 (15:50→19:53)
[2018-07-18] MEDS: cefTRIAXone 1 GM in Sodium Chloride 0.9% 50 ML IV SCH (16:45)
[2018-07-18] MEDS: metFORMIN 500 MG Tab.ER PO SCH (17:01)
[2018-07-18] MEDS: Azithromycin 500 MG in Sodium Chloride 0.9% 250 ML IV SCH (17:07)
--- NOTE | 2018-07-18 17:16 | PCM.HP ---
H&P History of Present Illness - General Date of Service: 07/18/18 Admit Problem/Dx: Admission Diagnosis/Problem Admission Diagnosis/Problem Pneumonia, COPD exacerbation, Diabetes Type 2, Heart Failure, Chronic back pain. Source of Information: Patient, RN History Limitations: Reports: No Limitations - History of Present Illness Initial Comments - Free Text/Narative: 77 yr old male admit from outpatient clinic today. Kindly refer to scanned in document from the clinic notes. Pt has been progressively short of breath for about 3 weeks at home and presented to the clinic today. He had been trying extra doses of Lasix at home for this and some relief noted. He has his home oxygen at 6lpm n/c for this shortness of breath. He does have a hx of severe COPD, Diabetes Type 2 controlled with diet, hypertension, atrial fibrillation with coumadin daily, chronic low back pain, he does use the CPAP at hs daily and has oxygen at home. He does live alone. - Related Data Allergies/Adverse Reactions: Allergies Allergy/AdvReac Type Severity Reaction Status Date / Time Sulfa (Sulfonamide Allergy Hives Verified 01/11/18 17:43 Antibiotics) Home Medications: Home Meds Allopurinol [Zyloprim] 100 mg PO BID 12/04/17 [History] Losartan [Cozaar] 50 mg PO BID 12/04/17 [History] Warfarin [Coumadin] 5 mg PO DAILY 12/04/17 [History] hydrALAZINE [Apresoline] 50 mg PO DAILY 12/04/17 [History] Warfarin [Coumadin] 2.5 mg PO DAILY 12/09/17 [History] Furosemide [Lasix] 40 mg PO BID #60 tablet 12/12/17 [Rx] Acetaminophen/HYDROcodone [[place] 325-5 MG] 1 tab PO Q6H PRN 01/11/18 [History] Montelukast [Singulair] 10 mg PO DAILY 01/11/18 [History] Past Medical History Cardiovascular History: Reports: Afib Respiratory History: Reports: COPD, Sleep Apnea, Other (See Below) Other Respiratory History: Continuous O2 at 3LPM and Bipap at night Gastrointestinal History: Reports: Other (See Below) Other Gastrointestinal History: ABD hernia Musculoskeletal History: Reports: Back Pain, Chronic - Infectious Disease History Infectious Disease History: Reports: Chicken Pox, Measles, Mumps - Past Surgical History Cardiovascular Surgical History: Reports: None Respiratory Surgical History: Reports: None GI Surgical History: Reports: None Musculoskeletal Surgical History: Reports: Other (See Below) Other Musculoskeletal Surgeries/Procedures:: Lamenectomy 45 years ago Social & Family History - Family History Family Medical History: Noncontributory - Caffeine Use Caffeine Use: Reports: Coffee - Living Situation & Occupation 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 Denies: Chest Pain Skin: Reports: Dryness. Denies: Bruising, Erythema Psychiatric: Reports: No Symptoms. Denies: Confusion, Depression Neurological: Reports: No Symptoms Hematologic/Lymphatic: Reports: Other (coumadin related changes) Exam - Exam Exam: See Below - Exam Quality Assessment: Supplemental Oxygen General: Alert, Oriented, Cooperative HEENT: PERRLA, Mucosa Moist & [place], Pupils Equal, Pupils Reactive Neck: Supple, Trachea Midline Lungs: Decreased Breath Sounds, Rhonchi, Other (increase respiratory effort) Cardiovascular: Normal S1, Normal S2 GI/Abdominal Exam: Normal Bowel Sounds, Soft, Non-Tender Extremities: Pedal Edema, Other (sitting in wheelchair). No: Leg Pain, Increased Warmth, Redness Skin: Warm, Dry Neuro Extensive - Mental Status: Alert, Oriented x3, Normal Mood/Affect, Normal Cognition - Patient Data Lab Results Last 24 hrs: Laboratory Results - last 24 hr 07/18/18 07/18/18 Range/Units 14:14 14:14 WBC 9.7 (4.0-11.0) K/uL RBC 4.57 (4.50-6.50) M/uL Hgb 13.3 (13.0-18.0) g/dL Hct 41.9 (40.0-54.0) % MCV 92 (76-96) fL MCH 29.1 (27.0-32.0) pg MCHC 31.7 (31.0-35.0) g/dL RDW 14.0 (11.0-16.0) % Plt Count 249 (150-400) K/uL MPV 9.8 (6.0-10.0) fL Neut % (Auto) 84.7 H (45.0-70.0) % Lymph % (Auto) 5.6 L (20.0-40.0) % [place] % (Auto) 7.5 (3.0-10.0) % Eos % (Auto) 1.9 (1.0-5.0) % Baso % (Auto) 0.3 (0.0-0.5) % Neut # (Auto) 8.20 H (2.00-7.50) K/uL Lymph # (Auto) 0.54 L (1.50-4.00) K/uL [place] # (Auto) 0.73 (0.20-0.80) K/uL Eos # (Auto) 0.18 (0.04-0.40) K/uL Baso # (Auto) 0.03 (0.02-0.10) K/uL Sodium 144 (136-145) mmol/L Potassium 4.0 (3.5-5.1) mmol/L Chloride 105 (98-107) mmol/L Carbon Dioxide 31.3 (21.0-32.0) mmol/L Anion Gap 11.7 (5.0-15.0) mmol/L BUN 31 H (8-26) mg/dL Creatinine 1.30 (0.70-1.30) mg/dL Est Cr Clr Drug Dosing TNP Estimated GFR (MDRD) 54 L (>60) MLS/MIN BUN/Creatinine Ratio 23.8 (6-25) Glucose 161 H (74-100) mg/dL Calcium 8.3 L (8.5-10.1) mg/dL Total Bilirubin 0.3 (0.0-1.0) mg/dL AST 21 (15-37) U/L ALT 31 (12-78) U/L Alkaline Phosphatase 142 H (46-116) U/L B-Natriuretic Peptide 3296 H (0-450) pg/mL Total Protein 7.5 (6.4-8.2) g/dL Albumin 2.7 L (3.4-5.0) g/dL Globulin 4.8 H (2.2-4.2) g/dL Albumin/Globulin Ratio 0.6 L (0.8-2.0) Result Diagrams: 07/18/18 14:14 07/18/18 14:14 - Problem List (1) Pneumonia SNOMED Code(s): 620603730 ICD Code: J18.9 - PNEUMONIA, UNSPECIFIED ORGANISM Status: Acute Current Visit: Yes (2) COPD exacerbation SNOMED Code(s): 425970257 ICD Code: J44.1 - CHRONIC OBSTRUCTIVE PULMONARY DISEASE W (ACUTE) EXACERBATION Status: Acute Current Visit: Yes (3) Heart failure SNOMED Code(s): 04360799 ICD Code: I50.9 - HEART FAILURE, UNSPECIFIED Status: Acute Current Visit : Yes (4) Diabetes type 2, controlled SNOMED Code(s): 40900897, 037176218 ICD Code: E11.9 - TYPE 2 DIABETES MELLITUS WITHOUT COMPLICATIONS Status: Acute Current Visit: Yes (5) Anticoagulant long-term use SNOMED Code(s): 993526098 ICD Code: Z79.01 - 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 (CURRENT) USE OF ANTICOAGULANTS Status: Acute Current Visit: Yes (6) Oxygen dependent SNOMED Code(s): 817347614823 ICD Code: Z99.81 - DEPENDENCE ON SUPPLEMENTAL OXYGEN Status: Acute Current Visit: Yes (7) LYUDMILA on CPAP SNOMED Code(s): 25392099 ICD Code: G47.33 - OBSTRUCTIVE SLEEP APNEA (ADULT) (PEDIATRIC); Z99.89 - DEPENDENCE ON OTHER ENABLING MACHINES AND DEVICES Status: Acute Current Visit: Yes Problem List Initiated/Reviewed/Updated: Yes Orders Last 24hrs: Active Orders 24 hr Category Date Time Status Admission Diagnosis [ADT] Urgent ADT 07/18/18 14:44 Active Patient Status [ADT] Routine ADT 07/18/18 14:46 Active Bedrest Bathroom Privileges [RC] ASDIRECTED Care 07/18/18 14:45 Active Blood Glucose Check, Bedside [RC] QIDACANDBED Care 07/18/18 14:45 Active Height and Weight [RC] DAILY Care 07/18/18 14:45 Active Intake and Output [RC] QSHIFT Care 07/18/18 14:47 Active Oxygen Therapy [RC] PRN Care 07/18/18 14:46 Active RT Aerosol Therapy [RC] ASDIRECTED Care 07/18/18 14:50 Active VTE/DVT Education [RC] Per Unit Routine Care 07/18/18 14:46 Active Vital Signs [RC] Q4H Care 07/18/18 14:46 Active Consistent Carbohydrate Diet [DIET] Diet 07/19/18 Breakfast Ordered Heart Healthy Diet [DIET] Diet 07/18/18 Dinner Ordered Chest 2V [CR] Routine Exams 07/18/18 Taken Albuterol/Ipratropium [DuoNeb 3.0-0.5 MG/3 ML] Med 07/18/18 16:00 Active 3 ml NEB QID Azithromycin [Zithromax] 500 mg Med 07/18/18 15:00 Active Sodium Chloride 0.9% [Normal Saline] 250 ml IV Q24H Sodium Chloride 0.9% [Normal Saline] 1,000 ml Med 07/18/18 14:45 Active IV ASDIRECTED Sodium Chloride 0.9% [Saline Flush] Med 07/18/18 14:45 Active 10 ml FLUSH ASDIRECTED PRN cefTRIAXone [Rocephin] 1 gm Med 07/18/18 15:00 Active Sodium Chloride 0.9% [Normal Saline] 50 ml IV Q24H metFORMIN [Glucophage XR] Med 07/18/18 17:00 Active 500 mg PO BIDMEALS Peripheral IV Insertion Adult [OM.PC] Routine Oth 07/18/18 14:45 Ordered Resuscitation Status Routine Resus Stat 07/18/18 14:45 Ordered Medication Orders Albuterol/Ipratropium (Duoneb 3.0-0.5 Mg/3 Ml) 3 ml NEB QID [facility] Last Admin: 07/18/18 15:50 Dose: 3 ml Sodium Chloride (Normal Saline) 1,000 mls @ 50 mls/hr IV ASDIRECTED [facility] Last Admin: 07/18/18 16:24 Dose: 50 mls/hr Azithromycin 500 mg/ Sodium (Chloride) 250 mls @ 250 mls/hr IV Q24H [facility] Last Admin: 07/18/18 17:07 Dose: 250 mls/hr Ceftriaxone Sodium 1 gm/ (Sodium Chloride) 50 mls @ 200 mls/hr IV Q24H [facility] Last Admin: 07/18/18 16:45 Dose: 200 mls/hr Metformin HCl (Glucophage Xr) 500 mg PO BIDMEALS [facility] Last Admin: 07/18/18 17:01 Dose: 500 mg Sodium Chloride (Saline Flush) 10 ml FLUSH ASDIRECTED PRN PRN Reason: Keep Vein Open Last Admin: 07/18/18 16:24 Dose: 10 ml Assessment/Plan Comment:: See scanned in notes.
[2018-07-18] MEDS ORDERED: Acetaminophen/HYDROcodone 325-5 MG Tab PO PRN (17:43)
[2018-07-18] MEDS: Montelukast 10 MG Tab PO SCH (19:53)
[2018-07-18] MEDS: Losartan 50 MG Tab PO SCH (20:05)
[2018-07-19] MEDS ORDERED: methylPREDNISolone Sodium Succinate 125 MG/2 ML SDV IV ONE (08:00)
[2018-07-19] MEDS ORDERED: Furosemide 40 MG/4 ML VIAL IVPUSH SCH (08:00)
[2018-07-19] MEDS: Furosemide 40 MG/4 ML VIAL IVPUSH SCH ×2 (08:23→15:35)
[2018-07-19] MEDS: hydrALAZINE 25 MG Tab PO SCH (08:24)
[2018-07-19] MEDS: metFORMIN 500 MG Tab.ER PO SCH ×2 (08:25→16:50)
[2018-07-19] MEDS: Albuterol/Ipratropium 3.0-0.5 MG/3 ML Neb Soln NEB SCH ×4 (08:26→19:40)
[2018-07-19] MEDS: Losartan 50 MG Tab PO SCH ×2 (08:26→19:39)
[2018-07-19] MEDS ORDERED: methylPREDNISolone Sodium Succinate 125 MG/2 ML SDV ONE (10:47)
--- NOTE | 2018-07-19 11:41 | PCM.PN ---
- General Info Date of Service: 07/19/18 Admission Dx/Problem (Free Text): Admission Diagnosis/Problem Admission Diagnosis/Problem Pneumonia, COPD exacerbation, Diabetes Type 2, Heart Failure, Chronic back pain. Subjective Update: Shortness of breath improved today. Functional Status: Reports: Pain Controlled, Tolerating Diet, Urinating, Incentive Spirometry - Review of Systems General: Reports: No Symptoms HEENT: Reports: No Symptoms Pulmonary: Reports: Shortness of Breath, Cough, Sputum Cardiovascular: Reports: Dyspnea on Exertion. Denies: Palpitations, Edema Gastrointestinal: Denies: Diarrhea, Nausea, Vomiting Genitourinary: Reports: Frequency Musculoskeletal: Reports: No Symptoms Skin: Reports: No Symptoms Neurological: Reports: No Symptoms Psychiatric: Reports: No Symptoms - Patient Data Vitals - Most Recent: Last Vital Signs Temp 97.8 F 07/19/18 02:00 Pulse 69 07/19/18 02:00 Resp 18 07/19/18 02:00 BP 159/61 H 07/19/18 08:26 Pulse Ox 95 07/19/18 02:00 Weight - Most Recent: 259 lb 12.8 oz I&O - Last 24 Hours: Intake & Output 07/18/18 07/19/18 07/19/18 22:59 06:59 14:59 Intake Total 300 655 Output Total 900 Balance -600 655 Lab Results Last 24 Hours: Laboratory Results - last 24 hr 07/18/18 07/18/18 07/18/18 Range/Units 14:14 14:14 16:00 WBC 9.7 (4.0-11.0) K/uL RBC 4.57 (4.50-6.50) M/uL Hgb 13.3 (13.0-18.0) g/dL Hct 41.9 (40.0-54.0) % MCV 92 (76-96) fL MCH 29.1 (27.0-32.0) pg MCHC 31.7 (31.0-35.0) g/dL RDW 14.0 (11.0-16.0) % Plt Count 249 (150-400) K/uL MPV 9.8 (6.0-10.0) fL Neut % (Auto) 84.7 H (45.0-70.0) % Lymph % (Auto) 5.6 L (20.0-40.0) % [place] % (Auto) 7.5 (3.0-10.0) % Eos % (Auto) 1.9 (1.0-5.0) % Baso % (Auto) 0.3 (0.0-0.5) % Neut # (Auto) 8.20 H (2.00-7.50) K/uL Lymph # (Auto) 0.54 L (1.50-4.00) K/uL [place] # (Auto) 0.73 (0.20-0.80) K/uL Eos # (Auto) 0.18 (0.04-0.40) K/uL Baso # (Auto) 0.03 (0.02-0.10) K/uL PT (9.0-11.5) sec INR (1.0-3.5) Sodium 144 (136-145) mmol/L Potassium 4.0 (3.5-5.1) mmol/L Chloride 105 (98-107) mmol/L Carbon Dioxide 31.3 (21.0-32.0) mmol/L Anion Gap 11.7 (5.0-15.0) mmol/L BUN 31 H (8-26) mg/dL Creatinine 1.30 (0.70-1.30) mg/dL Est Cr Clr Drug Dosing TNP Estimated GFR (MDRD) 54 L (>60) MLS/MIN BUN/Creatinine Ratio 23.8 (6-25) Glucose 161 H (74-100) mg/dL POC Glucose 147 H (74-110) mg/dL Calcium 8.3 L (8.5-10.1) mg/dL Total Bilirubin 0.3 (0.0-1.0) mg/dL AST 21 (15-37) U/L ALT 31 (12-78) U/L Alkaline Phosphatase 142 H (46-116) U/L B-Natriuretic Peptide 3296 H (0-450) pg/mL Total Protein 7.5 (6.4-8.2) g/dL Albumin 2.7 L (3.4-5.0) g/dL Globulin 4.8 H (2.2-4.2) g/dL Albumin/Globulin Ratio 0.6 L (0.8-2.0) 07/19/18 07/19/18 07/19/18 Range/Units 08:10 08:10 08:10 WBC 11.8 H D (4.0-11.0) K/uL RBC 4.73 (4.50-6.50) M/uL Hgb 13.8 (13.0-18.0) g/dL Hct 43.3 (40.0-54.0) % MCV 92 (76-96) fL MCH 29.2 (27.0-32.0) pg MCHC 31.9 (31.0-35.0) g/dL RDW 13.9 (11.0-16.0) % Plt Count 251 (150-400) K/uL MPV 10.1 H (6.0-10.0) fL Neut % (Auto) 95.9 H (45.0-70.0) % Lymph % (Auto) 3.1 L (20.0-40.0) % [place] % (Auto) 0.8 L (3.0-10.0) % Eos % (Auto) 0.1 L (1.0-5.0) % Baso % (Auto) 0.1 (0.0-0.5) % Neut # (Auto) 11.28 H (2.00-7.50) K/uL Lymph # (Auto) 0.36 L (1.50-4.00) K/uL [place] # (Auto) 0.09 L (0.20-0.80) K/uL Eos # (Auto) 0.01 L (0.04-0.40) K/uL Baso # (Auto) 0.01 L (0.02-0.10) K/uL PT 18.2 H (9.0-11.5) sec INR 1.9 (1.0-3.5) Sodium 144 (136-145) mmol/L Potassium 4.5 (3.5-5.1) mmol/L Chloride 105 (98-107) mmol/L Carbon Dioxide 31.8 (21.0-32.0) mmol/L Anion Gap 11.7 (5.0-15.0) mmol/L BUN 27 H (8-26) mg/dL Creatinine 1.12 (0.70-1.30) mg/dL Est Cr Clr Drug Dosing TNP Estimated GFR (MDRD) > 60 (>60) MLS/MIN BUN/Creatinine Ratio 24.1 (6-25) Glucose 196 H (74-100) mg/dL POC Glucose (74-110) mg/dL Calcium 8.9 (8.5-10.1) mg/dL Total Bilirubin (0.0-1.0) mg/dL AST (15-37) U/L ALT (12-78) U/L Alkaline Phosphatase (46-116) U/L B-Natriuretic Peptide (0-450) pg/mL Total Protein (6.4-8.2) g/dL Albumin (3.4-5.0) g/dL Globulin (2.2-4.2) g/dL Albumin/Globulin Ratio (0.8-2.0) Med Orders - Current: Current Medications Hydrocodone Bitart/Acetaminophen ([place] 325-5 Mg) 1 tab PO Q6H PRN PRN Reason: Pain Albuterol/Ipratropium (Duoneb 3.0-0.5 Mg/3 Ml) 3 ml NEB QID [facility] Last Admin: 07/19/18 08:26 Dose: 3 ml Furosemide (Lasix) 40 mg IVPUSH BID@0800,1400 [facility] Stop: 07/19/18 20:00 Last Admin: 07/19/18 08:23 Dose: 40 mg Furosemide (Lasix) 40 mg PO BIDDIURETIC [facility] Hydralazine HCl (Apresoline) 50 mg PO DAILY [facility] Last Admin: 07/19/18 08:24 Dose: 50 mg Azithromycin 500 mg/ Sodium (Chloride) 250 mls @ 250 mls/hr IV Q24H [facility] Last Admin: 07/18/18 17:07 Dose: 250 mls/hr Ceftriaxone Sodium 1 gm/ (Sodium Chloride) 50 mls @ 200 mls/hr IV Q24H [facility] Last Admin: 07/18/18 16:45 Dose: 200 mls/hr Losartan Potassium (Cozaar) 50 mg PO BID [facility] Last Admin: 07/19/18 08:26 Dose: 50 mg Metformin HCl (Glucophage Xr) 500 mg PO BIDMEALS [facility] Last Admin: 07/19/18 08:25 Dose: 500 mg Montelukast Sodium (Singulair) 10 mg PO BEDTIME [facility] Last Admin: 07/18/18 19:53 Dose: 10 mg Prednisone (Prednisone) 40 mg PO WITHBREAKFAST [facility] Sodium Chloride (Saline Flush) 10 ml FLUSH ASDIRECTED PRN PRN Reason: Keep Vein Open Last Admin: 07/18/18 16:24 Dose: 10 ml Warfarin Sodium (Coumadin) 2.5 mg PO DAILY@1800 [facility] Discontinued Medications Furosemide (Lasix) 40 mg IVPUSH NOW ONE Stop: 07/18/18 14:53 Last Admin: 07/18/18 16:25 Dose: 40 mg Furosemide (Lasix) 40 mg IVPUSH DAILY [facility] Sodium Chloride (Normal Saline) 1,000 mls @ 50 mls/hr IV ASDIRECTED [facility] Stop: 07/19/18 00:16 Last Admin: 07/18/18 16:24 Dose: 50 mls/hr Methylprednisolone Sodium Succinate (Solu-Medrol) 125 mg IVPUSH ONETIME ONE Stop: 07/18/18 14:52 Last Admin: 07/18/18 16:25 Dose: 125 mg Methylprednisolone Sodium Succinate (Solu-Medrol) 60 mg IV ONETIME ONE Stop: 07/19/18 08:01 Last Admin: 07/19/18 11:00 Dose: 60 mg Methylprednisolone Sodium Succinate (Solu-Medrol) Confirm Administered Dose 125 mg .ROUTE .STK-MED ONE Stop: 07/19/18 10:48 Warfarin Sodium (Coumadin) 2.5 mg PO MoWeFr@1800 [facility] Warfarin Sodium (Coumadin) 5 mg PO SuTuThSa@1800 [facility] - Exam Quality Assessment: Supplemental Oxygen General: Alert, Oriented, No Acute Distress HEENT: Pupils Equal, Pupils Reactive, Mucous Membr. Moist/[place] Neck: Supple, Trachea Midline Lungs: Normal Respiratory Effort, Decreased Breath Sounds Cardiovascular: Irregular Rhythm GI/Abdominal Exam: Normal Bowel Sounds, Soft, Non-Tender, No Distention Extremities: Normal Range of Motion, Non-Tender, No Pedal Edema, Normal Capillary Refill Skin: Warm, Dry Neurological: Normal Speech, Strength Equal Bilateral Psy/Mental Status: Alert, Normal Affect, Normal Mood - Problem List & Annotations (1) Pneumonia SNOMED Code(s): 969237980 Code(s): J18.9 - PNEUMONIA, UNSPECIFIED ORGANISM Status: Acute Current Visit: Yes (2) COPD exacerbation SNOMED Code(s): 131895746 Code(s): J44.1 - CHRONIC OBSTRUCTIVE PULMONARY DISEASE W (ACUTE) EXACERBATION Status: Acute Current Visit: Yes (3) Heart failure SNOMED Code(s): 21873910 Code(s): I50.9 - HEART FAILURE, UNSPECIFIED Status: Acute Current Visit: Yes (4) Diabetes type 2, controlled SNOMED Code(s): 91804722, 410558336 Code(s): E11.9 - TYPE 2 DIABETES MELLITUS WITHOUT COMPLICATIONS Status: Acute Current Visit: Yes (5) Anticoagulant long-term use SNOMED Code(s): 925388687 Code(s): Z79.01 - RETIREMENT (CURRENT) USE OF ANTICOAGULANTS Status: Acute Current Visit: Yes (6) Oxygen dependent SNOMED Code(s): 963518610404 Code(s): Z99.81 - DEPENDENCE ON SUPPLEMENTAL OXYGEN Status: Acute Current Visit: Yes (7) LYUDMILA on CPAP SNOMED Code(s): 71594535 Code(s): G47.33 - OBSTRUCTIVE SLEEP APNEA (ADULT) (PEDIATRIC); Z99.89 - DEPENDENCE ON OTHER ENABLING MACHINES AND DEVICES Status: Acute Current Visit: Yes - Problem List Review Problem List Initiated/Reviewed/Updated: Yes - My Orders Last 24 Hours: My Active Orders 07/18/18 14:44 Admission Diagnosis [ADT] Urgent 07/18/18 14:45 Bedrest Bathroom Privileges [RC] ASDIRECTED Blood Glucose Check, Bedside [RC] QIDACANDBED Height and Weight [RC] DAILY Sodium Chloride 0.9% [Saline Flush] 10 ml FLUSH ASDIRECTED PRN Peripheral IV Insertion Adult [OM.PC] Routine Resuscitation Status Routine 07/18/18 14:46 Patient Status [ADT] Routine Oxygen Therapy [RC] 0800 Vital Signs [RC] Q4H 07/18/18 14:47 Intake and Output [RC] 06,18 07/18/18 14:50 RT Aerosol Therapy [RC] ASDIRECTED 07/18/18 15:00 Azithromycin [Zithromax] 500 mg Sodium Chloride 0.9% [Normal Saline] 250 ml IV Q24H cefTRIAXone [Rocephin] 1 gm Sodium Chloride 0.9% [Normal Saline] 50 ml IV Q24H 07/18/18 16:00 Albuterol/Ipratropium [DuoNeb 3.0-0.5 MG/3 ML] 3 ml NEB QID 07/18/18 17:00 metFORMIN [Glucophage XR] 500 mg PO BIDMEALS 07/18/18 17:43 Acetaminophen/HYDROcodone [[place] 325-5 MG] 1 tab PO Q6H PRN 07/18/18 20:00 Losartan [Cozaar] 50 mg PO BID Montelukast [Singulair] 10 mg PO BEDTIME 07/18/18 Dinner Heart Healthy Diet [DIET] 07/19/18 08:00 Furosemide [Lasix] 40 mg IVPUSH BID@0800,1400 hydrALAZINE [Apresoline] 50 mg PO DAILY 07/19/18 18:00 Warfarin [Coumadin] 2.5 mg PO DAILY@1800 07/19/18 Breakfast Consistent Carbohydrate Diet [DIET] 07/20/18 08:00 BASIC METABOLIC PANEL,BMP [CHEM] Routine CBC WITH AUTO DIFF [HEME] Routine Furosemide [Lasix] 40 mg PO BIDDIURETIC predniSONE 40 mg PO WITHBREAKFAST - Plan Plan:: See scanned in notes. 07-19-18 Pneumonia, COPD exacerbation and shortness of breath improved: WBC slight increase today, probably related to Solumedrol. Start incentive spirometer. Up in chair for meals as tolerated. IV fluid d'cd. Continue IV azithromycin, Rocephin. Taper dose of Solumedrol IV. Start oral Prednisone tomorrow. Labs in am. Continue CPAP at hs and taper oxygen n/C to keep SaO2 >92%. Heart failure improved. 4 # weight decrease. Edema to legs improved. Lasix 40 mg IV bid today. Change to oral Lasix bid tomorrow. Diabetes type 2. Blood sugar elevated this am. Probably related to disease process and Solumedrol Continue with Metformin bid. Blood sugar ac and hs. Labs in am. 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 PT/INR in am. Plan discharge to self care, home in 2-3 days.
[2018-07-19] MEDS: cefTRIAXone 1 GM in Sodium Chloride 0.9% 50 ML IV SCH (15:37)
[2018-07-19] MEDS: Azithromycin 500 MG in Sodium Chloride 0.9% 250 ML IV SCH (15:40)
[2018-07-19] MEDS ORDERED: Warfarin 5 MG Tab PO SCH (18:00)
[2018-07-19] MEDS: Warfarin 2.5 MG Tab PO SCH (18:16)
[2018-07-19] MEDS: Montelukast 10 MG Tab PO SCH (19:40)
[2018-07-20] MEDS: Furosemide 40 MG Tab PO SCH ×2 (07:23→14:53)
[2018-07-20] MEDS: Albuterol/Ipratropium 3.0-0.5 MG/3 ML Neb Soln NEB SCH ×4 (07:23→19:26)
[2018-07-20] MEDS: hydrALAZINE 25 MG Tab PO SCH (07:24)
[2018-07-20] MEDS: metFORMIN 500 MG Tab.ER PO SCH ×2 (07:24→17:05)
[2018-07-20] MEDS: Losartan 50 MG Tab PO SCH ×2 (08:00→19:26)
[2018-07-20] MEDS ORDERED: predniSONE 20 MG Tab PO SCH (08:00)
[2018-07-20] MEDS ORDERED: Furosemide 40 MG/4 ML VIAL IVPUSH ONE (11:17)
--- NOTE | 2018-07-20 11:18 | PCM.PN ---
- General Info Date of Service: 07/20/18 Subjective Update: This is a 77yo M with home oxygen use 24hours a day here for inpatient treatment for shortness of breath and likely pneumonia. He has been improving gradually the past few days and states he feels much better. Nursing have noted an increase in weight. His labs show elevating WBC. He has been on solumedrol x1. He is not on oral prednisone. He denies any other concerns today. Nursing do not note any overnight issues. Functional Status: Reports: Tolerating Diet, Ambulating - Review of Systems General: Reports: Weakness HEENT: Reports: No Symptoms Pulmonary: Reports: Shortness of Breath, Wheezing Cardiovascular: Reports: No Symptoms Gastrointestinal: Reports: No Symptoms Musculoskeletal: Reports: No Symptoms Neurological: Reports: Weakness Psychiatric: Reports: No Symptoms - Patient Data Vitals - Most Recent: Last Vital Signs Temp 36.3 C 07/20/18 06:00 Pulse 76 07/20/18 06:00 Resp 20 07/20/18 06:00 BP 153/85 H 07/20/18 07:24 Pulse Ox 97 07/20/18 06:00 Weight - Most Recent: 117.027 kg I&O - Last 24 Hours: Intake & Output 07/19/18 07/20/18 07/20/18 22:59 06:59 14:59 Intake Total 900 Output Total 600 450 Balance 300 -450 Lab Results Last 24 Hours: Laboratory Results - last 24 hr 07/19/18 07/20/18 07/20/18 Range/Units 18:43 08:25 08:25 WBC 19.1 H D (4.0-11.0) K/uL RBC 4.61 (4.50-6.50) M/uL Hgb 13.5 (13.0-18.0) g/dL Hct 42.3 (40.0-54.0) % MCV 92 (76-96) fL MCH 29.3 (27.0-32.0) pg MCHC 31.9 (31.0-35.0) g/dL RDW 14.1 (11.0-16.0) % Plt Count 256 (150-400) K/uL MPV 10.1 H (6.0-10.0) fL Neut % (Auto) 93.2 H (45.0-70.0) % Lymph % (Auto) 2.9 L (20.0-40.0) % [place] % (Auto) 3.8 (3.0-10.0) % Eos % (Auto) 0.0 L (1.0-5.0) % Baso % (Auto) 0.1 (0.0-0.5) % Neut # (Auto) 17.76 H (2.00-7.50) K/uL Lymph # (Auto) 0.55 L (1.50-4.00) K/uL [place] # (Auto) 0.73 (0.20-0.80) K/uL Eos # (Auto) 0.00 L (0.04-0.40) K/uL Baso # (Auto) 0.01 L (0.02-0.10) K/uL Sodium 141 (136-145) mmol/L Potassium 4.6 (3.5-5.1) mmol/L Chloride 101 (98-107) mmol/L Carbon Dioxide 32.3 H (21.0-32.0) mmol/L Anion Gap 12.3 (5.0-15.0) mmol/L BUN 30 H (8-26) mg/dL Creatinine 1.19 (0.70-1.30) mg/dL Est Cr Clr Drug Dosing 45.22 mL/min Estimated GFR (MDRD) 59 L (>60) MLS/MIN BUN/Creatinine Ratio 25.2 H (6-25) Glucose 154 H (74-100) mg/dL POC Glucose 365 H (74-110) mg/dL Calcium 8.5 (8.5-10.1) mg/dL Med Orders - Current: Current Medications Hydrocodone Bitart/Acetaminophen ([place] 325-5 Mg) 1 tab PO Q6H PRN PRN Reason: Pain Albuterol/Ipratropium (Duoneb 3.0-0.5 Mg/3 Ml) 3 ml NEB QID [facility] Last Admin: 07/20/18 07:23 Dose: 3 ml Furosemide (Lasix) 40 mg PO BID@0800,1400 [facility] Last Admin: 07/20/18 07:23 Dose: 40 mg Hydralazine HCl (Apresoline) 50 mg PO DAILY [facility] Last Admin: 07/20/18 07:24 Dose: 50 mg Piperacillin Sod/Tazobactam (Sod 4.5 gm/ Sodium Chloride) 100 mls @ 200 mls/hr IV Q6H [facility] Losartan Potassium (Cozaar) 50 mg PO BID [facility] Last Admin: 07/19/18 19:39 Dose: 50 mg Metformin HCl (Glucophage Xr) 500 mg PO BIDMEALS [facility] Last Admin: 07/20/18 07:24 Dose: 500 mg Montelukast Sodium (Singulair) 10 mg PO BEDTIME [facility] Last Admin: 07/19/18 19:40 Dose: 10 mg Prednisone (Prednisone) 40 mg PO WITHBREAKFAST [facility] Last Admin: 07/20/18 07:24 Dose: 40 mg Sodium Chloride (Saline Flush) 10 ml FLUSH ASDIRECTED PRN PRN Reason: Keep Vein Open Last Admin: 07/18/18 16:24 Dose: 10 ml Warfarin Sodium (Coumadin) 2.5 mg PO DAILY@1800 [facility] Last Admin: 07/19/18 18:16 Dose: 2.5 mg Discontinued Medications Furosemide (Lasix) 40 mg IVPUSH NOW ONE Stop: 07/18/18 14:53 Last Admin: 07/18/18 16:25 Dose: 40 mg Furosemide (Lasix) 40 mg IVPUSH DAILY [facility] Furosemide (Lasix) 40 mg IVPUSH BID@0800,1400 [facility] Stop: 07/19/18 20:00 Last Admin: 07/19/18 15:35 Dose: 40 mg Sodium Chloride (Normal Saline) 1,000 mls @ 50 mls/hr IV ASDIRECTED [facility] Stop: 07/19/18 00:16 Last Admin: 07/18/18 16:24 Dose: 50 mls/hr Azithromycin 500 mg/ Sodium (Chloride) 250 mls @ 250 mls/hr IV Q24H [facility] Last Admin: 07/19/18 15:40 Dose: 250 mls/hr Ceftriaxone Sodium 1 gm/ (Sodium Chloride) 50 mls @ 200 mls/hr IV Q24H [facility] Last Admin: 07/19/18 15:37 Dose: 200 mls/hr Methylprednisolone Sodium Succinate (Solu-Medrol) 125 mg IVPUSH ONETIME ONE Stop: 07/18/18 14:52 Last Admin: 07/18/18 16:25 Dose: 125 mg Methylprednisolone Sodium Succinate (Solu-Medrol) 60 mg IV ONETIME ONE Stop: 07/19/18 08:01 Last Admin: 07/19/18 11:00 Dose: 60 mg Methylprednisolone Sodium Succinate (Solu-Medrol) Confirm Administered Dose 125 mg .ROUTE .STK-MED ONE Stop: 07/19/18 10:48 Last Admin: 07/19/18 15:23 Dose: Not Given Warfarin Sodium (Coumadin) 2.5 mg PO MoWeFr@1800 [facility] Warfarin Sodium (Coumadin) 5 mg PO SuTuThSa@1800 [facility] - Exam Quality Assessment: Supplemental Oxygen General: Alert, Oriented, Cooperative HEENT: Pupils Equal, Pupils Reactive, EOMI Neck: Supple Lungs: Decreased Breath Sounds, Rhonchi, Wheezing Cardiovascular: Regular Rate, Regular Rhythm GI/Abdominal Exam: Normal Bowel Sounds, Soft, Non-Tender Extremities: Normal Inspection - Problem List & Annotations (1) COPD exacerbation SNOMED Code(s): 263400940 Code(s): J44.1 - CHRONIC OBSTRUCTIVE PULMONARY DISEASE W (ACUTE) EXACERBATION Status: Acute Current Visit: Yes (2) Diabetes type 2, controlled SNOMED Code(s): 08130700, 688883489 Code(s): E11.9 - TYPE 2 DIABETES MELLITUS WITHOUT COMPLICATIONS Status: Acute Current Visit: Yes (3) Heart failure SNOMED Code(s): 23408252 Code(s): I50.9 - HEART FAILURE, UNSPECIFIED Status: Acute Current Visit: Yes (4) Oxygen dependent SNOMED Code(s): 207803263583 Code(s): Z99.81 - DEPENDENCE ON SUPPLEMENTAL OXYGEN Status: Acute Current Visit: Yes (5) Pneumonia SNOMED Code(s): 148657180 Code(s): J18.9 - PNEUMONIA, UNSPECIFIED ORGANISM Status: Acute Current Visit: Yes - Problem List Review Problem List Initiated/Reviewed/Updated: Yes - My Orders Last 24 Hours: My Active Orders 07/20/18 11:00 Piperacillin/Tazobactam [Zosyn] 4.5 gm Sodium Chloride 0.9% [Normal Saline] 100 ml IV Q6H 07/20/18 11:17 Furosemide [Lasix] 40 mg IVPUSH NOW ONE 07/21/18 05:11 CBC WITH AUTO DIFF [HEME] AM COMPREHENSIVE METABOLIC PN,CMP [CHEM] AM INR,PT,PROTHROMBIN TIME [COAG] AM - Plan Plan:: See scanned in notes. 07-19-18 Pneumonia, COPD exacerbation and shortness of breath improved: WBC slight increase today, probably related to Solumedrol. Start incentive spirometer. Up in chair for meals as tolerated. IV fluid d'cd. Continue IV azithromycin, Rocephin. Taper dose of Solumedrol IV. Start oral Prednisone tomorrow. Labs in am. Continue CPAP at hs and taper oxygen n/C to keep SaO2 >92%. Heart failure improved. 4 # weight decrease. Edema to legs improved. Lasix 40 mg IV bid today. Change to oral Lasix bid tomorrow. Diabetes type 2. Blood sugar elevated this am. Probably related to disease process and Solumedrol Continue with Metformin bid. Blood sugar ac and hs. Labs in am. Anticoagulant use, long-term: Will change Coumadin dose to 2.5 mg daily with the start of antibiotic. PT/INR in am. Plan discharge to self care, home in 2-3 days. 07/20/18 Continual improvement of pneumonia and COPD symptoms. Elevated WBC concerning but may be in part due to steroids. We will adjust antibiotics and recheck labs in AM. Patient is afebrile and improving. Continue incentive spirometer. D/C rocephin and azithromycin and start Zosyn. F/u labs in am. CHF - Continue to monitor weight - we will add one IV dose of LAsix 40mg. DM- continue current management and monitoring of glucose. Recheck PT/INR in am.
--- NOTE | 2018-07-20 11:44 | CR ---
DATE OF SERVICE: 07/18/18 CLINICAL DATA: Shortness of breath PA AND LATERAL CHEST: No priors. The heart is enlarged. There are densities in both lower lungs, consistent with infiltrate or atelectasis. Pneumonia should be considered. There is blunting of both costophrenic angles, consistent with bilateral pleural effusions, left greater than right. There is also pleural thickening in both hemithoraces. No other significant findings. No pneumothorax. [id number] [facility]
[2018-07-20] MEDS: Piperacillin/Tazobactam 4.5 GM in Sodium Chloride 0.9% 100 ML IV SCH ×3 (12:23→22:28)
[2018-07-20] MEDS: Warfarin 2.5 MG Tab PO SCH (17:38)
[2018-07-20] MEDS: Montelukast 10 MG Tab PO SCH (19:26)
[2018-07-20] MEDS: Codeine/guaiFENesin 100-10 MG/5 ML Syrup 5 ML Cup PO PRN (21:29)
[2018-07-21] MEDS: Codeine/guaiFENesin 100-10 MG/5 ML Syrup 5 ML Cup PO PRN (02:34)
[2018-07-21] MEDS: Piperacillin/Tazobactam 4.5 GM in Sodium Chloride 0.9% 100 ML IV SCH ×2 (04:53→11:22)
[2018-07-21] MEDS: hydrALAZINE 25 MG Tab PO SCH (07:48)
[2018-07-21] MEDS: metFORMIN 500 MG Tab.ER PO SCH (07:49)
[2018-07-21] MEDS: Losartan 50 MG Tab PO SCH (07:50)
[2018-07-21] MEDS: Furosemide 40 MG Tab PO SCH (07:50)
[2018-07-21] MEDS: Albuterol/Ipratropium 3.0-0.5 MG/3 ML Neb Soln NEB SCH ×2 (07:50→12:18)
[2018-07-21] MEDS ORDERED: predniSONE 20 MG Tab PO SCH (08:00)
--- NOTE | 2018-07-21 17:55 | PCM.DCSUM1 ---
Discharge Summary - Discharge Data Discharge Date: 07/21/18 Discharge Disposition: DC/Tfer W/I Hosp To [facility] Condition: Stable - Discharge Diagnosis/Problem(s) (1) Pneumonia SNOMED Code(s): 363493405 ICD Code: J18.9 - PNEUMONIA, UNSPECIFIED ORGANISM Status: Acute (2) COPD exacerbation SNOMED Code(s): 921437879 ICD Code: J44.1 - CHRONIC OBSTRUCTIVE PULMONARY DISEASE W (ACUTE) EXACERBATION Status: Acute (3) Heart failure SNOMED Code(s): 48378820 ICD Code: I50.9 - HEART FAILURE, UNSPECIFIED Status: Acute (4) Diabetes type 2, controlled SNOMED Code(s): 60976441, 621566658 ICD Code: E11.9 - TYPE 2 DIABETES MELLITUS WITHOUT COMPLICATIONS Status: Acute (5) Anticoagulant long-term use SNOMED Code(s): 407864585 ICD Code: Z79.01 - MCC (CURRENT) USE OF ANTICOAGULANTS Status: Acute (6) Oxygen dependent SNOMED Code(s): 673829428208 ICD Code: Z99.81 - DEPENDENCE ON SUPPLEMENTAL OXYGEN Status: Acute (7) LYUDMILA on CPAP SNOMED Code(s): 83114288 ICD Code: G47.33 - OBSTRUCTIVE SLEEP APNEA (ADULT) (PEDIATRIC); Z99.89 - DEPENDENCE ON OTHER ENABLING MACHINES AND DEVICES Status: Acute - Patient Summary/Data Consults: Consultations 07/21/18 08:39 OT Evaluation and Treatment [CONS] Routine Please Evaluate and Treat. OT Reason for Consult: Strengthening This query below is only for informational purposes and is not editable. Admission Diagnosis/Problem: Pneumonia PT Evaluation and Treatment [CONS] Routine Please Evaluate and Treat. PT Reason for Consult: Strengthening This query below is only for informational purposes and is not editable. Admission Diagnosis/Problem: Pneumonia - Patient Instructions Diet, Other: consistent carbohydrate Activity: As Tolerated, Cough & Deep Breathe Showering/Bathing: May Shower - Discharge Plan *PRESCRIPTION DRUG MONITORING PROGRAM REVIEWED*: Not Applicable *COPY OF PRESCRIPTION DRUG MONITORING REPORT IN PATIENT NOAH: Not Applicable Home Medications: Home Meds Allopurinol [Zyloprim] 100 mg PO TID 12/04/17 [History] Losartan [Cozaar] 50 mg PO BID 12/04/17 [History] Warfarin [Coumadin] 5 mg PO DAILY 12/04/17 [History] hydrALAZINE [Apresoline] 50 mg PO DAILY 12/04/17 [History] Warfarin [Coumadin] 2.5 mg PO DAILY 12/09/17 [History] Furosemide [Lasix] 40 mg PO BID #60 tablet 12/12/17 [Rx] Montelukast [Singulair] 10 mg PO BEDTIME 01/11/18 [History] Oxygen Therapy Mode: CPAP - Discharge Summary/Plan Comment DC Time >30 min.: No (Admit to [facility] bed program for strengthening.) Discharge Summary/Plan Comment: Transfer to [facility] bed program. Will continue with Zosyn IV one more day and change to oral in am. Will start Prednisone taper. Continue with Tussin AC every 6 hour prn/cough. Continue incentive spirometer. CBC in am. PT/OT consult for strengthening. - General Info Date of Service: 07/21/18 Admission Dx/Problem (Free Text: Admission Diagnosis/Problem Admission Diagnosis/Problem Pneumonia, COPD exacerbation, Diabetes Type 2, Heart Failure, Chronic back pain. Subjective Update: Less short of breath, weakness continues and lives alone. Functional Status: Reports: Pain Controlled, Tolerating Diet, Urinating, Incentive Spirometry - Review of Systems General: Reports: Weakness. Denies: Fever HEENT: Denies: Headaches, Sinus Congestion, Sore Throat Pulmonary: Reports: Cough Cardiovascular: Reports: Dyspnea on Exertion. Denies: Chest Pain, Palpitations , Edema Gastrointestinal: Denies: Abdominal Pain, Decreased Appetite, Nausea, Vomiting Genitourinary: Reports: Frequency Musculoskeletal: Reports: Back Pain (chronic back pain), Other (weakness) Skin: Reports: No Symptoms Neurological: Reports: No Symptoms Psychiatric: Reports: No Symptoms - Patient Data Vitals - Most Recent: Last Vital Signs Temp 97.3 F 07/21/18 07:51 Pulse 67 07/21/18 07:51 Resp 22 H 07/21/18 07:51 BP 155/123 H 07/21/18 07:51 Pulse Ox 99 07/21/18 07:51 Weight - Most Recent: 260 lb I&O - Last 24 hours: Intake & Output 07/21/18 07/21/18 07/21/18 06:59 14:59 22:59 Intake Total 300 Balance 300 Lab Results - Last 24 hrs: Laboratory Results - last 24 hr 05/08/0307/21/18 07/21/18 Range/Units 18:10 07:20 07:20 WBC 11.9 H D (4.0-11.0) K/uL RBC 4.20 L (4.50-6.50) M/uL Hgb 12.2 L (13.0-18.0) g/dL Hct 38.9 L (40.0-54.0) % MCV 93 (76-96) fL MCH 29.0 (27.0-32.0) pg MCHC 31.4 (31.0-35.0) g/dL RDW 14.1 (11.0-16.0) % Plt Count 218 (150-400) K/uL MPV 10.2 H (6.0-10.0) fL Neut % (Auto) 86.7 H (45.0-70.0) % Lymph % (Auto) 5.3 L (20.0-40.0) % [place] % (Auto) 7.6 (3.0-10.0) % Eos % (Auto) 0.3 L (1.0-5.0) % Baso % (Auto) 0.1 (0.0-0.5) % Neut # (Auto) 10.32 H (2.00-7.50) K/uL Lymph # (Auto) 0.63 L (1.50-4.00) K/uL [place] # (Auto) 0.90 H (0.20-0.80) K/uL Eos # (Auto) 0.04 (0.04-0.40) K/uL Baso # (Auto) 0.01 L (0.02-0.10) K/uL PT 17.0 H (9.0-11.5) sec INR 1.8 (1.0-3.5) Sodium (136-145) mmol/L Potassium (3.5-5.1) mmol/L Chloride (98-107) mmol/L Carbon Dioxide (21.0-32.0) mmol/L Anion Gap (5.0-15.0) mmol/L BUN (8-26) mg/dL Creatinine (0.70-1.30) mg/dL Est Cr Clr Drug Dosing mL/min Estimated GFR (MDRD) (>60) MLS/MIN BUN/Creatinine Ratio (6-25) Glucose (74-100) mg/dL POC Glucose 306 H (74-110) mg/dL Calcium (8.5-10.1) mg/dL Total Bilirubin (0.0-1.0) mg/dL AST (15-37) U/L ALT (12-78) U/L Alkaline Phosphatase (46-116) U/L Total Protein (6.4-8.2) g/dL Albumin (3.4-5.0) g/dL Globulin (2.2-4.2) g/dL Albumin/Globulin Ratio (0.8-2.0) 07/21/18 07/21/18 Range/Units 07:20 10:44 WBC (4.0-11.0) K/uL RBC (4.50-6.50) M/uL Hgb (13.0-18.0) g/dL Hct (40.0-54.0) % MCV (76-96) fL MCH (27.0-32.0) pg MCHC (31.0-35.0) g/dL RDW (11.0-16.0) % Plt Count (150-400) K/uL MPV (6.0-10.0) fL Neut % (Auto) (45.0-70.0) % Lymph % (Auto) (20.0-40.0) % [place] % (Auto) (3.0-10.0) % Eos % (Auto) (1.0-5.0) % Baso % (Auto) (0.0-0.5) % Neut # (Auto) (2.00-7.50) K/uL Lymph # (Auto) (1.50-4.00) K/uL [place] # (Auto) (0.20-0.80) K/uL Eos # (Auto) (0.04-0.40) K/uL Baso # (Auto) (0.02-0.10) K/uL PT (9.0-11.5) sec INR (1.0-3.5) Sodium 143 (136-145) mmol/L Potassium 4.4 (3.5-5.1) mmol/L Chloride 104 (98-107) mmol/L Carbon Dioxide 34.2 H (21.0-32.0) mmol/L Anion Gap 9.2 (5.0-15.0) mmol/L BUN 33 H (8-26) mg/dL Creatinine 1.50 H D (0.70-1.30) mg/dL Est Cr Clr Drug Dosing 35.88 mL/min Estimated GFR (MDRD) 45 L (>60) MLS/MIN BUN/Creatinine Ratio 22.0 (6-25) Glucose 82 D (74-100) mg/dL POC Glucose 143 H (74-110) mg/dL Calcium 8.1 L (8.5-10.1) mg/dL Total Bilirubin 0.4 D (0.0-1.0) mg/dL AST 35 (15-37) U/L ALT 57 (12-78) U/L Alkaline Phosphatase 101 (46-116) U/L Total Protein 6.5 (6.4-8.2) g/dL Albumin 2.6 L (3.4-5.0) g/dL Globulin 3.9 (2.2-4.2) g/dL Albumin/Globulin Ratio 0.7 L (0.8-2.0) Med Orders - Current: Current Medications Discontinued Medications Hydrocodone Bitart/Acetaminophen ([place] 325-5 Mg) 1 tab PO Q6H PRN PRN Reason: Pain Albuterol/Ipratropium (Duoneb 3.0-0.5 Mg/3 Ml) 3 ml NEB QID [facility] Last Admin: 07/21/18 12:18 Dose: 3 ml Furosemide (Lasix) 40 mg IVPUSH NOW ONE Stop: 07/18/18 14:53 Last Admin: 07/18/18 16:25 Dose: 40 mg Furosemide (Lasix) 40 mg IVPUSH DAILY [facility] Furosemide (Lasix) 40 mg IVPUSH BID@0800,1400 [facility] Stop: 07/19/18 20:00 Last Admin: 07/19/18 15:35 Dose: 40 mg Furosemide (Lasix) 40 mg PO BID@0800,1400 [facility] Last Admin: 07/21/18 07:50 Dose: Not Given Furosemide (Lasix) 40 mg IVPUSH NOW ONE Stop: 07/20/18 11:18 Last Admin: 07/20/18 12:21 Dose: 40 mg Guaifenesin/Codeine Phosphate (Robitussin Ac) 5 ml PO Q6H PRN PRN Reason: Cough Last Admin: 07/21/18 02:34 Dose: 5 ml Hydralazine HCl (Apresoline) 50 mg PO DAILY [facility] Last Admin: 07/21/18 07:48 Dose: 50 mg Sodium Chloride (Normal Saline) 1,000 mls @ 50 mls/hr IV ASDIRECTED [facility] Stop: 07/19/18 00:16 Last Admin: 07/18/18 16:24 Dose: 50 mls/hr Azithromycin 500 mg/ Sodium (Chloride) 250 mls @ 250 mls/hr IV Q24H [facility] Last Admin: 07/19/18 15:40 Dose: 250 mls/hr Ceftriaxone Sodium 1 gm/ (Sodium Chloride) 50 mls @ 200 mls/hr IV Q24H [facility] Last Admin: 07/19/18 15:37 Dose: 200 mls/hr Piperacillin Sod/Tazobactam (Sod 4.5 gm/ Sodium Chloride) 100 mls @ 200 mls/hr IV Q6H [facility] Last Admin: 07/21/18 11:22 Dose: 200 mls/hr Losartan Potassium (Cozaar) 50 mg PO BID [facility] Last Admin: 07/21/18 07:50 Dose: 50 mg Metformin HCl (Glucophage Xr) 500 mg PO BIDMEALS [facility] Last Admin: 07/21/18 07:49 Dose: 500 mg Methylprednisolone Sodium Succinate (Solu-Medrol) 125 mg IVPUSH ONETIME ONE Stop: 07/18/18 14:52 Last Admin: 07/18/18 16:25 Dose: 125 mg Methylprednisolone Sodium Succinate (Solu-Medrol) 60 mg IV ONETIME ONE Stop: 07/19/18 08:01 Last Admin: 07/19/18 11:00 Dose: 60 mg Methylprednisolone Sodium Succinate (Solu-Medrol) Confirm Administered Dose 125 mg .ROUTE .STK-MED ONE Stop: 07/19/18 10:48 Last Admin: 07/19/18 15:23 Dose: Not Given Montelukast Sodium (Singulair) 10 mg PO BEDTIME [facility] Last Admin: 07/20/18 19:26 Dose: 10 mg Prednisone (Prednisone) 40 mg PO WITHBREAKFAST [facility] Last Admin: 07/20/18 07:24 Dose: 40 mg Prednisone (Prednisone) 40 mg PO 0800 [facility] Last Admin: 07/21/18 07:51 Dose: 40 mg Sodium Chloride (Saline Flush) 10 ml FLUSH ASDIRECTED PRN PRN Reason: Keep Vein Open Last Admin: 07/18/18 16:24 Dose: 10 ml Warfarin Sodium (Coumadin) 2.5 mg PO MoWeFr@1800 [facility] Warfarin Sodium (Coumadin) 5 mg PO SuTuThSa@1800 [facility] Warfarin Sodium (Coumadin) 2.5 mg PO DAILY@1800 [facility] Last Admin: 07/20/18 17:38 Dose: 2.5 mg - Exam Quality Assessment: Reports: Supplemental Oxygen General: Reports: Alert, Oriented, Cooperative, No Acute Distress HEENT: Reports: Pupils Equal, Pupils Reactive, Mucous Membr. Moist/[place] Neck: Reports: Supple, Trachea Midline Lungs: Reports: Normal Respiratory Effort, Decreased Breath Sounds. Denies: Rales, Rhonchi, Wheezing Cardiovascular: Reports: Irregular Rhythm GI/Abdominal Exam: Normal Bowel Sounds, Soft, Non-Tender Back Exam: Reports: Normal Inspection Extremities: Non-Tender, No Pedal Edema, Other (weakness with activity) Skin: Reports: Warm, Dry Neurological: Reports: No New Focal Deficit Psy/Mental Status: Reports: Alert, Normal Affect, Normal Mood
[2018-07-21] MEDS ORDERED: Warfarin 2.5 MG Tab PO SCH (18:00)
== END 2018-07-21 13:03 | disposition swing bed (61) | DRG 190 ==
LOC: LB.CLINIC 14:07 → LB.MS 14:36 → UNDOADMIN 14:36 → LB.MS 14:45
PROVIDERS: ADMIT Nurse Practitioner Family; ATTEND Nurse Practitioner Family
DX: R06.02 Shortness of breath (principal); J44.1 Chronic obstructive pulmonary disease with (acute) exacerbation; J18.9 Pneumonia, unspecified organism; J44.0 Chronic obstructive pulmonary disease with (acute) lower respiratory infection; I11.0 Hypertensive heart disease with heart failure; I50.9 Heart failure, unspecified; I48.91 Unspecified atrial fibrillation; E11.9 Type 2 diabetes mellitus without complications; G89.29 Other chronic pain; M54.5 Low back pain; K46.9 Unspecified abdominal hernia without obstruction or gangrene; D72.829 Elevated white blood cell count, unspecified; T38.0X5A Adverse effect of glucocorticoids and synthetic analogues, initial encounter; Z79.01 Long term (current) use of anticoagulants; G47.33 Obstructive sleep apnea (adult) (pediatric); Z99.89 Dependence on other enabling machines and devices; Z79.899 Other long term (current) drug therapy; Z88.2 Allergy status to sulfonamides; Z99.81 Dependence on supplemental oxygen
CPT/HCPCS: 36415; 71046; 80048; 80053; 82962; 83880; 85025; 85610; A9270-GY; J0456; J0696; J1940; J2543; J2930; J7030; J7050; J7620-GY

== ENCOUNTER 2018-07-21 08:45 | Inpatient (IN) | payer MEDICARE, BC ==
[2018-07-21] MEDS ORDERED: Sodium Chloride 0.9% 10 ML Syringe FLUSH PRN (13:01)
[2018-07-21] MEDS ORDERED: Piperacillin/Tazobactam 2.25 GM in Sodium Chloride 0.9% 50 ML IV SCH (13:15)
[2018-07-21] MEDS ORDERED: Piperacillin/Tazobactam 4.5 GM in Sodium Chloride 0.9% 100 ML IV SCH (13:15)
[2018-07-21] MEDS ORDERED: Piperacillin/Tazobactam 2.25 GM in Sodium Chloride 0.9% 100 ML IV SCH ×2 (14:15→14:30)
[2018-07-21] MEDS: Furosemide 40 MG Tab PO SCH ×2 (15:22→19:38)
[2018-07-21] MEDS: Allopurinol 100 MG Tab PO SCH ×2 (15:22→19:37)
[2018-07-21] MEDS: Piperacillin/Tazobactam 2.25 GM in Sodium Chloride 0.9% 100 ML IV SCH ×2 (16:34→23:55)
--- NOTE | 2018-07-21 17:37 | PCM.HP ---
H&P History of Present Illness - General Date of Service: 07/21/18 Admit Problem/Dx: Admission Diagnosis/Problem Admission Diagnosis/Problem COPD with acute lower respiratory infection Source of Information: Patient, Old Records, RN History Limitations: Reports: No Limitations - History of Present Illness Initial Comments - Free Text/Narative: 77 yr old male is admit to [facility] bed program today after hospitalization for acute COPD exacerbation and pneumonia with CHF. IV antibiotic of Zosyn started yesterday, originally treated with Azithromycin and Rocephin IV. WBC improved today with Zosyn. Pt lives alone and is weak with this and his co-morbidities, will have PT/OT consult for strengthening. - Related Data Allergies/Adverse Reactions: Allergies Allergy/AdvReac Type Severity Reaction Status Date / Time Sulfa (Sulfonamide Allergy Hives Verified 01/11/18 17:43 Antibiotics) Home Medications: Home Meds Allopurinol [Zyloprim] 100 mg PO TID 12/04/17 [History] Losartan [Cozaar] 50 mg PO BID 12/04/17 [History] Warfarin [Coumadin] 5 mg PO DAILY 12/04/17 [History] hydrALAZINE [Apresoline] 50 mg PO DAILY 12/04/17 [History] Warfarin [Coumadin] 2.5 mg PO DAILY 12/09/17 [History] Furosemide [Lasix] 40 mg PO BID #60 tablet 12/12/17 [Rx] Montelukast [Singulair] 10 mg PO BEDTIME 01/11/18 [History] Past Medical History Cardiovascular History: Reports: Afib Respiratory History: Reports: COPD, Sleep Apnea, Other (See Below) Other Respiratory History: Continuous O2 at 3LPM and Bipap at night Gastrointestinal History: Reports: Other (See Below) Other Gastrointestinal History: ABD hernia Musculoskeletal History: Reports: Back Pain, Chronic Endocrine/Metabolic History: Reports: Other (See Below) Other Endocrine/Metabolic History: prediabetes - Infectious Disease History Infectious Disease History: Reports: Chicken Pox, Measles, Mumps - Past Surgical History Cardiovascular Surgical History: Reports: None Respiratory Surgical History: Reports: None GI Surgical History: Reports: None Musculoskeletal Surgical History: Reports: Other (See Below) Other Musculoskeletal Surgeries/Procedures:: Lamenectomy 45 years ago Social & Family History - Family History Family Medical History: Noncontributory - Tobacco Use Smoking Status *Q: Former Smoker Used Tobacco, but Quit: Yes Month/Year Tobacco Last Used: 1979 - Caffeine Use Caffeine Use: Reports: Coffee - Recreational Drug Use Recreational Drug Use: No - Living Situation & Occupation 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 Denies: Fever, Chills HEENT: Reports: Sinus Congestion Pulmonary: Reports: Cough. Denies: Wheezing Cardiovascular: Reports: Dyspnea on Exertion Gastrointestinal: Reports: No Symptoms Genitourinary: Reports: No Symptoms Musculoskeletal: Reports: Back Pain (chronic back pain) Skin: Reports: No Symptoms Psychiatric: Reports: No Symptoms Neurological: Reports: No Symptoms Hematologic/Lymphatic: Reports: No Symptoms Exam - Exam Exam: See Below - Vital Signs Vital Signs: Last Vital Signs Temp 98.0 F 07/21/18 13:01 Pulse 75 07/21/18 13:01 Resp 20 07/21/18 13:01 BP 163/72 H 07/21/18 13:01 Pulse Ox 94 L 07/21/18 13:01 Weight: 260 lb - Exam Quality Assessment: Supplemental Oxygen General: Alert, Oriented, Cooperative HEENT: PERRLA, Mucosa Moist & [place] Neck: Supple, Trachea Midline Lungs: Normal Respiratory Effort, Decreased Breath Sounds Cardiovascular: Normal S1, Normal S2, Irregular Rhythm GI/Abdominal Exam: Soft, Non-Tender, No Distention Back Exam: Normal Inspection, Full Range of Motion Extremities: Non-Tender, Normal Capillary Refill, Other (using walker for ambulation. Sitting in chair for breakfast this am.). No: Pedal Edema, Leg Pain Skin: Warm, Dry, Intact Neuro Extensive - Mental Status: Alert, Oriented x3, Normal Mood/Affect Psychiatric: Alert, Normal Affect, Normal Mood - Patient Data Lab Results Last 24 hrs: Laboratory Results - last 24 hr 07/21/18 Range/Units 16:09 POC Glucose 194 H (74-110) mg/dL - Problem List (1) Anticoagulant long-term use SNOMED Code(s): 351077518 ICD Code: Z79.01 - LONGTERM (CURRENT) USE OF ANTICOAGULANTS Status: Acute Current Visit: No (2) COPD exacerbation SNOMED Code(s): 161490020 ICD Code: J44.1 - CHRONIC OBSTRUCTIVE PULMONARY DISEASE W (ACUTE) EXACERBATION Status: Acute Current Visit: No (3) Diabetes type 2, controlled SNOMED Code(s): 74540464, 805156533 ICD Code: E11.9 - TYPE 2 DIABETES MELLITUS WITHOUT COMPLICATIONS Status: Acute Current Visit: No (4) LYUDMILA on CPAP SNOMED Code(s): 32233795 ICD Code: G47.33 - OBSTRUCTIVE SLEEP APNEA (ADULT) (PEDIATRIC); Z99.89 - DEPENDENCE ON OTHER ENABLING MACHINES AND DEVICES Status: Acute Current Visit: No (5) Oxygen dependent SNOMED Code(s): 111595364667 ICD Code: Z99.81 - DEPENDENCE ON SUPPLEMENTAL OXYGEN Status: Acute Current Visit: No (6) Pneumonia SNOMED Code(s): 152431472 ICD Code: J18.9 - PNEUMONIA, UNSPECIFIED ORGANISM Status: Acute Current Visit: No Problem List Initiated/Reviewed/Updated: Yes Orders Last 24hrs: Active Orders 24 hr Category Date Time Status Patient Status [ADT] Routine ADT 07/21/18 13:01 Active Ambulate [RC] PER UNIT ROUTINE Care 07/21/18 13:04 Active Blood Glucose Check, Bedside [RC] DAILY Care 07/22/18 07:00 Active Height and Weight [RC] DAILY Care 07/21/18 13:04 Active Oxygen Therapy [RC] PRN Care 07/21/18 13:01 Active Up to Chair [RC] ASDIRECTED Care 07/21/18 13:01 Active VTE/DVT Education [RC] Per Unit Routine Care 07/21/18 13:01 Active Vital Signs [RC] PER UNIT ROUTINE Care 07/21/18 13:01 Active OT Evaluation and Treatment [CONS] Routine Cons 07/21/18 13:01 Active PT Evaluation and Treatment [CONS] Routine Cons 07/21/18 13:01 Active Consistent Carbohydrate Diet [DIET] Diet 07/21/18 Dinner Ordered CBC WITH AUTO DIFF [HEME] Routine Lab 07/22/18 08:00 Ordered Allopurinol [Zyloprim] Med 07/21/18 14:00 Active 100 mg PO TID Furosemide [Lasix] Med 07/21/18 14:00 Active 40 mg PO BID Losartan [Cozaar] Med 07/21/18 20:00 Active 50 mg PO BID Montelukast [Singulair] Med 07/21/18 20:00 Active 10 mg PO BEDTIME Piperacillin/Tazobactam [Zosyn] 2.25 gm Med 07/21/18 17:00 Active Sodium Chloride 0.9% [Normal Saline] 100 ml IV Q6H Sodium Chloride 0.9% [Saline Flush] Med 07/21/18 13:01 Active 10 ml FLUSH ASDIRECTED PRN Warfarin [Coumadin] Med 07/21/18 18:00 Active 2.5 mg PO DAILY hydrALAZINE [Apresoline] Med 07/22/18 08:00 Active 50 mg PO DAILY predniSONE Med 07/22/18 07:00 Active 40 mg PO WITHBREAKFAST Saline Lock Insert [OM.PC] Routine Oth 07/21/18 13:01 Ordered Resuscitation Status Routine Resus Stat 07/21/18 13:01 Ordered Medication Orders Allopurinol (Zyloprim) 100 mg PO TID [facility] [place] Last Admin: 07/21/18 15:22 Dose: 100 mg Furosemide (Lasix) 40 mg PO BID [facility] [place] Last Admin: 07/21/18 15:22 Dose: 40 mg Hydralazine HCl (Apresoline) 50 mg PO DAILY [facility] [place] Piperacillin Sod/Tazobactam (Sod 2.25 gm/ Sodium Chloride) 100 mls @ 200 mls/ hr IV Q6H [facility] [place] Last Admin: 07/21/18 16:34 Dose: 200 mls/hr Losartan Potassium (Cozaar) 50 mg PO BID [facility] [place] Montelukast Sodium (Singulair) 10 mg PO BEDTIME [facility] Prednisone (Prednisone) 40 mg PO WITHBREAKFAST JEFFREY Sodium Chloride (Saline Flush) 10 ml FLUSH ASDIRECTED PRN PRN Reason: Keep Vein Open Warfarin Sodium (Coumadin) 2.5 mg PO DAILY [facility] [place] Assessment/Plan Comment:: 07/21/2018 Pneumonia, COPD exacerbation: Continue with Zosyn today, will repeat CBC in am. Prednisone taper. Coagulant usp use: INR 1.9 today. Continue Coumadin 2.5 mg po daily. LYUDMILA w CPAP: Continue with CPAP at hs. oxygen dependent: Continue with oxygen n/c continuous. Weakness: PT/OT to consult. Diabetes Type 2: Daily FBS. Metformin bid.
[2018-07-21] MEDS: Warfarin 2.5 MG Tab PO SCH (17:56)
[2018-07-21] MEDS ORDERED: Codeine/guaiFENesin 100-10 MG/5 ML Syrup 5 ML Cup PO SCH (18:00)
[2018-07-21] MEDS ORDERED: Codeine/guaiFENesin 100-10 MG/5 ML Syrup 5 ML Cup PO PRN (18:22)
[2018-07-21] MEDS: Montelukast 10 MG Tab PO SCH (19:37)
[2018-07-21] MEDS: Losartan 50 MG Tab PO SCH (19:37)
[2018-07-22] MEDS: Piperacillin/Tazobactam 2.25 GM in Sodium Chloride 0.9% 100 ML IV SCH ×4 (05:44→23:06)
[2018-07-22] MEDS ORDERED: predniSONE 20 MG Tab PO SCH (07:00)
[2018-07-22] MEDS ORDERED: predniSONE 10 MG Tab PO SCH (07:00)
[2018-07-22] MEDS ORDERED: Non-Formulary Medication 1 Each (Hydralazine [Apresoline] 50 MG) PO SCH (08:00)
[2018-07-22] MEDS: hydrALAZINE 25 MG Tab PO SCH (08:12)
[2018-07-22] MEDS: Furosemide 40 MG Tab PO SCH ×2 (08:12→15:32)
[2018-07-22] MEDS: Allopurinol 100 MG Tab PO SCH ×3 (08:13→20:23)
[2018-07-22] MEDS: Losartan 50 MG Tab PO SCH ×2 (08:14→20:23)
[2018-07-22] MEDS: Warfarin 2.5 MG Tab PO SCH (10:14)
[2018-07-22] MEDS ORDERED: Tuberculin, PPD 5 Units/0.1 ML 1 ML MDV IDERM ONE ×2 (11:00→11:30)
[2018-07-22] MEDS ORDERED: metFORMIN 500 MG Tab ONE (16:43)
[2018-07-22] MEDS ORDERED: metFORMIN 500 MG Tab.ER PO SCH (17:15)
[2018-07-22] MEDS ORDERED: Warfarin 2.5 MG Tab PO SCH (18:00)
[2018-07-22] MEDS: Montelukast 10 MG Tab PO SCH (20:23)
[2018-07-23] MEDS: Piperacillin/Tazobactam 2.25 GM in Sodium Chloride 0.9% 100 ML IV SCH (04:57)
[2018-07-23] MEDS: Allopurinol 100 MG Tab PO SCH ×3 (07:39→20:38)
[2018-07-23] MEDS: Furosemide 40 MG Tab PO SCH ×2 (07:40→16:35)
[2018-07-23] MEDS: hydrALAZINE 25 MG Tab PO SCH (07:40)
[2018-07-23] MEDS: Losartan 50 MG Tab PO SCH ×2 (07:40→20:38)
[2018-07-23] MEDS: Amoxicillin/Clavulanate K 875-125 MG Tab PO SCH ×2 (07:40→20:37)
[2018-07-23] MEDS ORDERED: predniSONE 10 MG Tab PO SCH ×2 (08:00)
[2018-07-23] MEDS ORDERED: Albuterol/Ipratropium 3.0-0.5 MG/3 ML Neb Soln NEB SCH (13:45)
[2018-07-23] MEDS ORDERED: Albuterol/Ipratropium 3.0-0.5 MG/3 ML Neb Soln ONE (13:47)
[2018-07-23] MEDS: Albuterol/Ipratropium 3.0-0.5 MG/3 ML Neb Soln NEB SCH ×3 (14:00→20:38)
[2018-07-23] MEDS ORDERED: Warfarin 2.5 MG Tab PO ONE (18:00)
[2018-07-23] MEDS: metFORMIN 500 MG Tab.ER PO SCH ×2 (19:24→22:54)
[2018-07-23] MEDS: Montelukast 10 MG Tab PO SCH (20:37)
[2018-07-24] MEDS: hydrALAZINE 25 MG Tab PO SCH (07:16)
[2018-07-24] MEDS: Amoxicillin/Clavulanate K 875-125 MG Tab PO SCH (07:16)
[2018-07-24] MEDS: Furosemide 40 MG Tab PO SCH (07:16)
[2018-07-24] MEDS: Losartan 50 MG Tab PO SCH (07:16)
[2018-07-24] MEDS: Albuterol/Ipratropium 3.0-0.5 MG/3 ML Neb Soln NEB SCH ×2 (07:17→11:23)
[2018-07-24] MEDS: Allopurinol 100 MG Tab PO SCH (07:17)
[2018-07-24] MEDS ORDERED: predniSONE 10 MG Tab PO SCH (08:00)
--- NOTE | 2018-07-24 12:07 | PCM.DCSUM1 ---
Discharge Summary - Hospital Course HPI Initial Comments: 77 yr old male admit with COPD exacerbation and lower respiratory infection. Pt has been on the SWING bed program for strengthening and has improved and is using the cane for ambulation and states much improved with shortness of breath improved with ambulation and activity. Will discharge today and continue the Augmentin, Duo neb and Prednisone. Rx sent to local pharmacy. Pt has home oxygen and home PT/INR monitor. Recommend RTC next week for follow-up and labs. Diagnosis: Stroke: No - Discharge Data Discharge Date: 07/24/18 Discharge Disposition: Home, Self-Care 01 Condition: Good - Discharge Diagnosis/Problem(s) (1) Anticoagulant long-term use SNOMED Code(s): 692059230 ICD Code: Z79.01 - LONGTERM (CURRENT) USE OF ANTICOAGULANTS Status: Acute (2) COPD exacerbation SNOMED Code(s): 257514149 ICD Code: J44.1 - CHRONIC OBSTRUCTIVE PULMONARY DISEASE W (ACUTE) EXACERBATION Status: Acute (3) Diabetes type 2, controlled SNOMED Code(s): 20647866, 449237259 ICD Code: E11.9 - TYPE 2 DIABETES MELLITUS WITHOUT COMPLICATIONS Status: Acute (4) LYUDMILA on CPAP SNOMED Code(s): 63756836 ICD Code: G47.33 - OBSTRUCTIVE SLEEP APNEA (ADULT) (PEDIATRIC); Z99.89 - DEPENDENCE ON OTHER ENABLING MACHINES AND DEVICES Status: Acute (5) Oxygen dependent SNOMED Code(s): 970279017853 ICD Code: Z99.81 - DEPENDENCE ON SUPPLEMENTAL OXYGEN Status: Acute (6) Pneumonia SNOMED Code(s): 149680590 ICD Code: J18.9 - PNEUMONIA, UNSPECIFIED ORGANISM Status: Acute - Patient Summary/Data Consults: Consultations 07/21/18 13:01 OT Evaluation and Treatment [CONS] Routine Please Evaluate and Treat. OT Reason for Consult: Strengthening This query below is only for informational purposes and is not editable. PT Evaluation and Treatment [CONS] Routine Please Evaluate and Treat. PT Reason for Consult: Strengthening This query below is only for informational purposes and is not editable. - Patient Instructions Diet: Heart Healthy Diet Diet, Other: Consistent carbohydrate diet Activity: As Tolerated, Cough & Deep Breathe, Full Weight Bearing, Rest and Relax Today Driving: May Drive Today Showering/Bathing: May Shower Notify Provider of: Fever - Discharge Plan *PRESCRIPTION DRUG MONITORING PROGRAM REVIEWED*: Not Applicable *COPY OF PRESCRIPTION DRUG MONITORING REPORT IN PATIENT NOAH: Not Applicable Prescriptions/Med Rec: Amoxicillin/Clavulanate K [Augmentin 875-125 MG] 1 tab PO Q12HR 7 Days #14 tablet Albuterol/Ipratropium [DuoNeb 3.0-0.5 MG/3 ML] 3 ml NEB QID 30 Days #120 neb predniSONE 10 mg PO DAILY #5 tablet Home Medications: Home Meds Allopurinol [Zyloprim] 100 mg PO TID 12/04/17 [History] Losartan [Cozaar] 50 mg PO BID 12/04/17 [History] Warfarin [Coumadin] 5 mg PO DAILY 12/04/17 [History] hydrALAZINE [Apresoline] 50 mg PO DAILY 12/04/17 [History] Furosemide [Lasix] 40 mg PO BID #60 tablet 12/12/17 [Rx] Montelukast [Singulair] 10 mg PO BEDTIME 01/11/18 [History] Albuterol/Ipratropium [DuoNeb 3.0-0.5 MG/3 ML] 3 ml NEB QID 30 Days #120 neb 12/04 [Rx] Amoxicillin/Clavulanate K [Augmentin 875-125 MG] 1 tab PO Q12HR 7 Days #14 tablet 07/24/18 [Rx] Warfarin [Coumadin] 2.5 mg PO DAILY@1800 tablet 07/24/18 [Rx] predniSONE 10 mg PO DAILY #5 tablet 07/24/18 [Rx] Oxygen Therapy Mode: CPAP Maintain SpO2% greater than: 92 Patient Handouts: Community-Acquired Pneumonia, Adult, [id number] - Discharge Summary/Plan Comment DC Time >30 min.: Yes (Counseled on COPD exacerbation and medications.) Discharge Summary/Plan Comment: Will discharge today and continue the Augmentin, Duo neb and Prednisone. Coumadin 5mg on Saturday and Saturday and 2.5 mg Sun, , Sat, , Sat. Rx sent to local pharmacy. Pt has home oxygen and home PT/INR monitor. Recommend RTC next week for follow-up and labs. Activity restriction to be based on shortness of breath. Continue to slowly build-up exercise. May shower when home with intermittent use of oxygen as tolerated. Limit riding law mowing for 1-2 weeks. - General Info Date of Service: 07/24/18 Admission Dx/Problem (Free Text: Admission Diagnosis/Problem Admission Diagnosis/Problem COPD with acute lower respiratory infection Functional Status: Reports: Tolerating Diet, Ambulating, Urinating, Incentive Spirometry - Review of Systems General: Denies: Fever, Fatigue, Malaise HEENT: Denies: Sinus Congestion, Sore Throat Pulmonary: Reports: Cough, Sputum Cardiovascular: Reports: Dyspnea on Exertion. Denies: Chest Pain, Palpitations Gastrointestinal: Denies: Constipation, Decreased Appetite, Diarrhea Genitourinary: Reports: Frequency. Denies: Burning, Hematuria Musculoskeletal: Reports: Other (chronic back pain) Skin: Reports: No Symptoms Neurological: Reports: No Symptoms Psychiatric: Reports: No Symptoms - Patient Data Vitals - Most Recent: Last Vital Signs Temp 98.0 F 07/24/18 08:00 Pulse 58 L 07/24/18 08:00 Resp 17 07/23/18 20:00 BP 165/79 H 07/24/18 08:00 Pulse Ox 96 07/24/18 08:00 Weight - Most Recent: 560 lb 6.641 oz Lab Results - Last 24 hrs: Laboratory Results - last 24 hr 07/24/18 Range/Units 07:06 POC Glucose 111 H (74-110) mg/dL Med Orders - Current: Current Medications Albuterol/Ipratropium (Duoneb 3.0-0.5 Mg/3 Ml) 3 ml NEB QID [facility] Last Admin: 07/24/18 11:23 Dose: 3 ml Allopurinol (Zyloprim) 100 mg PO TID [facility] Last Admin: 07/24/18 07:17 Dose: 100 mg Amoxicillin/Clavulanate Potassium (Augmentin 875 Mg/125 Mg) 1 tab PO Q12HR [facility] Stop: 07/27/18 20:01 Last Admin: 07/24/18 07:16 Dose: 1 tab Furosemide (Lasix) 40 mg PO BID@0800,1600 [facility] Last Admin: 07/24/18 07:16 Dose: 40 mg Guaifenesin/Codeine Phosphate (Robitussin Ac) 5 ml PO Q6H PRN PRN Reason: Cough Last Admin: 07/22/18 14:04 Dose: 5 ml Hydralazine HCl (Apresoline) 50 mg PO DAILY [facility] Last Admin: 07/24/18 07:16 Dose: 50 mg Losartan Potassium (Cozaar) 50 mg PO BID [facility] Last Admin: 07/24/18 07:16 Dose: 50 mg Montelukast Sodium (Singulair) 10 mg PO BEDTIME [facility] Last Admin: 07/23/18 20:37 Dose: 10 mg Prednisone (Prednisone) 10 mg PO DAILY [facility] Last Admin: 07/24/18 07:17 Dose: 10 mg Sodium Chloride (Saline Flush) 10 ml FLUSH ASDIRECTED PRN PRN Reason: Keep Vein Open Tuberculin PPD (Aplisol) 5 unit IDERM ONETIME ONE Stop: 08/05/18 11:31 Warfarin Sodium (Coumadin) 2.5 mg PO DAILY@1800 [facility] Discontinued Medications Albuterol/Ipratropium (Duoneb 3.0-0.5 Mg/3 Ml) Confirm Administered Dose 3 ml .ROUTE .STK-MED ONE Stop: 07/23/18 13:48 Last Admin: 07/23/18 16:18 Dose: Not Given Furosemide (Lasix) 40 mg PO BID [facility] Last Admin: 07/22/18 08:12 Dose: 40 mg Guaifenesin/Codeine Phosphate (Robitussin Ac) 5 ml PO Q6H [facility] Last Admin: 07/21/18 18:40 Dose: Not Given Piperacillin Sod/Tazobactam (Sod 2.25 gm/ Sodium Chloride) 50 mls @ 100 mls/hr IV Q6H [facility] Last Admin: 07/21/18 15:39 Dose: Not Given Piperacillin Sod/Tazobactam (Sod 2.25 gm/ Sodium Chloride) 100 mls @ 200 mls/ hr IV Q6H [facility] Last Admin: 07/21/18 15:40 Dose: Not Given Piperacillin Sod/Tazobactam (Sod 2.25 gm/ Sodium Chloride) 100 mls @ 200 mls/ hr IV Q6H [facility] Stop: 07/23/18 06:00 Last Admin: 07/23/18 04:57 Dose: 200 mls/hr Metformin HCl (Glucophage Xr) 500 mg PO BIDMEALS [facility] Last Admin: 07/23/18 22:54 Dose: Not Given Metformin HCl (Glucophage) Confirm Administered Dose 500 mg .ROUTE .STK-MED ONE Stop: 07/22/18 16:44 Last Admin: 07/22/18 17:26 Dose: 500 mg Metformin HCl (Glucophage Xr) 500 mg PO DAILY@1700 [facility] Stop: 07/22/18 17:16 Last Admin: 07/22/18 20:18 Dose: Not Given Prednisone (Prednisone) 40 mg PO WITHBREAKFAST [facility] Prednisone (Prednisone) 30 mg PO WITHBREAKFAST [facility] Last Admin: 07/22/18 08:12 Dose: 30 mg Prednisone (Prednisone) 30 mg PO DAILY [facility] Prednisone (Prednisone) 20 mg PO DAILY [facility] Last Admin: 07/23/18 07:40 Dose: 20 mg Tuberculin PPD (Aplisol) 5 unit IDERM ONETIME ONE Stop: 07/22/18 11:01 Last Admin: 07/22/18 11:00 Dose: 5 unit Warfarin Sodium (Coumadin) 2.5 mg PO DAILY [facility] Last Admin: 07/22/18 10:14 Dose: Not Given Warfarin Sodium (Coumadin) 2.5 mg PO DAILY@1800 [facility] Last Admin: 07/22/18 17:26 Dose: 2.5 mg Warfarin Sodium (Coumadin) 5 mg PO ONETIME ONE Stop: 07/23/18 18:01 Last Admin: 07/23/18 17:49 Dose: 5 mg - Exam Quality Assessment: Reports: Supplemental Oxygen General: Reports: Alert, Oriented, Cooperative, No Acute Distress HEENT: Reports: Mucous Membr. Moist/[place] Neck: Reports: Supple, Trachea Midline Lungs: Reports: Normal Respiratory Effort. Denies: Decreased Breath Sounds, Crackles, Rhonchi Cardiovascular: Reports: Irregular Rhythm GI/Abdominal Exam: Soft, Non-Tender, Other (rotund) Back Exam: Reports: Normal Inspection Extremities: Non-Tender, No Pedal Edema Skin: Reports: Warm, Dry Neurological: Reports: No New Focal Deficit Psy/Mental Status: Reports: Alert, Normal Affect, Normal Mood
[2018-07-24] MEDS ORDERED: Warfarin 2.5 MG Tab PO SCH (18:00)
[2018-08-05] MEDS ORDERED: Tuberculin, PPD 5 Units/0.1 ML 1 ML MDV IDERM ONE (11:30)
== END 2018-07-24 13:05 | disposition home or self-care (01) | DRG 190 ==
LOC: LB.MS 13:01
PROVIDERS: ADMIT Nurse Practitioner Family; ATTEND Nurse Practitioner Family
DX: J44.0 Chronic obstructive pulmonary disease with (acute) lower respiratory infection (principal); J18.9 Pneumonia, unspecified organism; J44.1 Chronic obstructive pulmonary disease with (acute) exacerbation; E11.9 Type 2 diabetes mellitus without complications; G47.33 Obstructive sleep apnea (adult) (pediatric); I48.91 Unspecified atrial fibrillation; M54.9 Dorsalgia, unspecified; G89.29 Other chronic pain; Z87.891 Personal history of nicotine dependence; Z99.81 Dependence on supplemental oxygen; Z79.52 Long term (current) use of systemic steroids; Z79.899 Other long term (current) drug therapy; Z88.2 Allergy status to sulfonamides; Z79.01 Long term (current) use of anticoagulants
CPT/HCPCS: 36415; 82962; 85025; 85610; 86580; 97110-GO; 97110-GP; 97116-GP; 97161-GP; 97165-GO; A9270-GY; J2543; J7030; J7620-GY

== ENCOUNTER 2019-06-02 19:29 | Inpatient (IN) | payer MEDICARE, BC ==
[2019-06-02] MEDS ORDERED: Albuterol/Ipratropium 3.0-0.5 MG/3 ML Neb Soln NEB ONE (19:43)
--- NOTE | 2019-06-02 21:09 | ADMIT ---
This 78-year-old male was admitted through the emergency room with pneumonia with underlying CHF and COPD. The patient came in respiratory distress, which significantly improved, after given a Duo neb treatment, and oxygen here per nasal cannula. The patient's labs reveal a white count of 17,300, neutrophils are high at 93.8. BNP is quite elevated at 6660. The patient's chest x-ray reveals pneumonia with the possibility of an effusion, which appears new per radiologist report. The patient is being admitted for inpatient care. The Hospitalist Service will be contacted to help formulate a treatment plan for this patient this evening. CRS/MODL /[id number] JASKARAN
--- NOTE | 2019-06-02 21:25 | ER ---
HISTORY OF PRESENT ILLNESS: A 78-year-old male who comes in by ambulance with complaints of shortness of breath and not feeling good. He states he has not felt very well for about 3 weeks. He was seen in the clinic at that time. He was put on Augmentin for pneumonia. The patient states that he thought he was a little better, but now within the last 2 days his symptoms have definitely gotten worse. He has had a congested cough. He has had been coughing up some phlegm and the patient tells me that even when he uses oxygen at home, it is sometimes hard to breathe. Ambulance crew gave the patient 2 albuterol neb treatments on the way in and this did help his breathing to some degree. PAST MEDICAL HISTORY: Includes COPD, CHF, type 2 diabetes, atrial fibrillation with long- term anticoagulation use, history of pneumonia, low back pain, and obstructive sleep apnea with use of a CPAP machine. OBJECTIVE: GENERAL APPEARANCE: The patient is awake and alert. He is in mild respiratory distress. VITAL SIGNS: Initially revealed a temp of 99, pulse 51, BP 182/64, respirations 21, O2 sats started out at 73%, but with O2 on within about 10 minutes, he was up into the low 90s. LUNGS: He has scattered rales throughout the lung linares. I do not hear any wheezing. CARDIAC: Heart sounds distinct with an irregular rate. SKIN: Warm and dry. The patient is little mottled on the abdomen, which is protuberant tonight. HEENT: Ears, TMs are dull. Nares are dry. Lab review reveals the patient has been taking Lasix 40 mg b.i.d., which he states he has done today. He has taken 2 DuoNeb treatments at home in addition to his other medications. INITIAL TREATMENT PLAN: A DuoNeb was given to the patient here and this did help his breathing and his vitals definitely improved. His sats now are running in the 93-94 range and the patient's blood pressure dropped into the 120s/80s. LABORATORY DATA: Include a CBC showing a white count of 17,300, neutrophils are also high at 93.8. A basic metabolic panel shows a BUN of 45, creatinine 1.64. Electrolytes are okay. BNP is elevated at 6660. IMAGING: Chest x-ray shows consolidation of both bases with concern for pneumonia as well as effusion. Some of this appears to be new compared to the patient's previous x-ray from last year. DIAGNOSIS: Pneumonia with underlying congestive heart failure and chronic obstructive pulmonary disease. TREATMENT PLAN: The patient will be admitted for inpatient care. We will consult the hospitalist service to assist with new medications to help construct a treatment plan for this patient. CRS/MODL /[id number]
[2019-06-02] MEDS: Piperacillin/Tazobactam 3.375 GM in Sodium Chloride 0.9% 100 ML IV SCH (22:00)
--- NOTE | 2019-06-02 22:32 | PCM.PN ---
- General Info Date of Service: 06/02/19 - Patient Data Vitals - Most Recent: Last Vital Signs Temp 36.8 C 06/02/19 21:32 Pulse 59 L 06/02/19 21:32 Resp 20 06/02/19 21:32 BP 146/61 H 06/02/19 21:32 Pulse Ox 91 L 06/02/19 21:32 Weight - Most Recent: 12.066 kg Lab Results Last 24 Hours: Laboratory Results - last 24 hr 06/02/19 06/02/19 Range/Units 20:00 20:00 WBC 17.3 H D (4.0-11.0) K/uL RBC 4.98 (4.50-6.50) M/uL Hgb 14.5 (13.0-18.0) g/dL Hct 43.8 (40.0-54.0) % MCV 88 (76-96) fL MCH 29.1 (27.0-32.0) pg MCHC 33.1 (31.0-35.0) g/dL RDW 16.1 H (11.0-16.0) % Plt Count 158 D (150-400) K/uL MPV 10.9 H (6.0-10.0) fL Neut % (Auto) 93.8 H (45.0-70.0) % Lymph % (Auto) 1.5 L (20.0-40.0) % [place] % (Auto) 4.4 (3.0-10.0) % Eos % (Auto) 0.2 L (1.0-5.0) % Baso % (Auto) 0.1 (0.0-0.5) % Neut # (Auto) 16.25 H (2.00-7.50) K/uL Lymph # (Auto) 0.26 L (1.50-4.00) K/uL [place] # (Auto) 0.77 (0.20-0.80) K/uL Eos # (Auto) 0.04 (0.04-0.40) K/uL Baso # (Auto) 0.01 L (0.02-0.10) K/uL Sodium 135 L (136-145) mmol/L Potassium 4.3 (3.5-5.1) mmol/L Chloride 96 L (98-107) mmol/L Carbon Dioxide 29.5 (21.0-32.0) mmol/L Anion Gap 13.8 (5.0-15.0) mmol/L BUN 45 H D (8-26) mg/dL Creatinine 1.64 H (0.70-1.30) mg/dL Est Cr Clr Drug Dosing 34.71 mL/min Estimated GFR (MDRD) 41 L (>60) MLS/MIN BUN/Creatinine Ratio 27.4 H (6-25) Glucose 212 H D (74-100) mg/dL Calcium 9.3 (8.5-10.1) mg/dL B-Natriuretic Peptide 6660 H D (0-450) pg/mL Joshua Results Last 24 Hours: Microbiology 06/02/19 20:44 Influenza Type A Antigen Screen - Final Nasal Aspirate, Unspecified NEGATIVE INFLUENZA A VIRUS AG REFERENCE RANGE: NEGATIVE Influenza Type B Antigen Screen - Final NEGATIVE INFLUENZA B VIRUS AG REFERENCE RANGE: NEGATIVE Med Orders - Current: Current Medications Furosemide (Lasix) 40 mg IVPUSH BID [facility] Piperacillin Sod/Tazobactam (Sod 3.375 gm/ Sodium Chloride) 100 mls @ 100 mls/ hr IV Q6H [facility] Discontinued Medications Albuterol/Ipratropium (Duoneb 3.0-0.5 Mg/3 Ml) 3 ml NEB ONETIME ONE Stop: 06/02/19 19:44 Last Admin: 06/02/19 20:09 Dose: 3 ml Sepsis Event Note - Evaluation Sepsis Screening Result: Sepsis Risk - Focused Exam Vital Signs: Vital Signs Temp Pulse Resp BP Pulse Ox 06/02/19 21:32 36.8 C 59 L 20 146/61 H 91 L 06/02/19 19:37 37.2 C 106 H 21 H 171/78 H 73 L Date Exam was Performed: 06/02/19 Time Exam was Performed: 22:33 - Problem List & Annotations (1) Pneumonia SNOMED Code(s): 507282983 Code(s): J18.9 - PNEUMONIA, UNSPECIFIED ORGANISM Status: Acute Priority: Medium Current Visit: Yes Onset Date: ~06/02/19 Qualifiers: Pneumonia type: due to unspecified organism Laterality: bilateral Lung location: lower lobe of lung Qualified Code(s): J18.9 - Pneumonia, unspecified organism - Problem List Review Problem List Initiated/Reviewed/Updated: Yes - Plan Plan:: E hospitalist collaboration: I discussed in detail with Provider Trevon KENNY 78-year-old male admitted from the ED for shortness of breath and hypoxia. He does have underlying COPD and CHF and has baseline chronic hypoxia with O2 of 3 to 4 L and afib on chronic anticoagulation. He has had increasing symptoms over 3 weeks. He has completed a course of steroids and oral antibiotics. He was given 2 albuterol neb treatments on the way to the ED via ambulance staff. On arrival he was satting 90% on 5 L. Prior to coming to the ED patient had already doubled his dose of Lasix up to a total of 80 mg. On arrival to the ED he was hypertensive with BP into the systolic 170s and now has improved to 120/70. WBC 17, hemoglobin 14.5, sodium 135, potassium 4.3, BUN 45, creatinine 1.64, glucose 220, BNP 6660. Negative for influenza. Per report: No acute suspicion for cover 19 has has been isolated in [place] and no exposures and no travel. CXR I attempted to view but freezes in the EMR, per report bibasilar pneumonia and some effusions. I was not able to see patient on camera (technology issue) but clinically patient stable per nursing. Assessment and plan: Pneumonia, acute on chronic hypoxic respiratory failure, COPD exacerbation, CHF exacerbation. Patient currently is on Zosyn and will continue on renally dosed (patient had appropriate oral antibiotics but has not improved). Continue nebs. Consider further steroids, but patient tolentino been on in the outpatient setting. He had already increased his Lasix dose at home prior to arriving to the ED and will hold on further Lasix tonite as clinically patient is stable on 5 L with baseline O2 3 to 4 L. Repeat renal function in the a.m. and monitor electrolytes and further Lasix tomorrow IV BID and consider increasing Lasix dose further if needed. Renal function some CKD with cr 1.5 on 07/21/18. Monitor urine output. INR in the AM for his Coumadin dosing. Nursing will call if patient becomes more sob and would consider adding steroids and further lasix tonite. Feel free to call ehospitalist with any questions
[2019-06-03] MEDS ORDERED: LORazepam 2 MG/ML SDV IVPUSH ONE (02:52)
[2019-06-03] MEDS: Piperacillin/Tazobactam 3.375 GM in Sodium Chloride 0.9% 100 ML IV SCH ×3 (04:29→16:46)
--- NOTE | 2019-06-03 07:55 | CR ---
DATE OF SERVICE: 06/02/19 CLINICAL DATA: SOB AP PORTABLE CHEST: Comparison is made to a prior exam dated 07/18/18. The heart remains enlarged, unchanged. There is increased density in both lower lungs consistent with infiltrate or atelectasis. Pneumonia should be considered. There is also increased density in the lateral aspect of the left lung. This may be overlying soft tissue. There is blunting of both costophrenic angles consistent with bilateral pleural effusions. No pneumothorax. [id number] [facility]
[2019-06-03] MEDS ORDERED: Furosemide 40 MG/4 ML VIAL IVPUSH SCH (08:00)
[2019-06-03] MEDS ORDERED: methylPREDNISolone Sodium Succinate 125 MG/2 ML SDV IVPUSH ONE (11:11)
[2019-06-03] MEDS ORDERED: Albuterol/Ipratropium 3.0-0.5 MG/3 ML Neb Soln NEB SCH (11:15)
[2019-06-03] MEDS ORDERED: Furosemide 40 MG/4 ML VIAL IVPUSH ONE (11:28)
[2019-06-03] MEDS ORDERED: Insulin Aspart 100 Units/ML 3 ML Pen SUBCUT ONE (11:39)
[2019-06-03] MEDS ORDERED: Vancomycin 1.2 GM in Sodium Chloride 0.9% 250 ML IV ONE (12:34)
--- NOTE | 2019-06-03 12:49 | PCM.PN ---
- General Info Date of Service: 06/03/19 Admission Dx/Problem (Free Text): PNEUMONIA/copd Functional Status: Reports: Pain Controlled - Review of Systems General: Reports: Fever HEENT: Reports: No Symptoms Pulmonary: Reports: No Symptoms Cardiovascular: Reports: No Symptoms Gastrointestinal: Reports: No Symptoms, Other (hAS BEEN PASSING A LOT OF GAS). Denies: Abdominal Pain, Constipation Genitourinary: Reports: No Symptoms Musculoskeletal: Reports: No Symptoms Skin: Reports: No Symptoms Neurological: Reports: No Symptoms Psychiatric: Reports: No Symptoms - Patient Data Vitals - Most Recent: Last Vital Signs Temp 98.1 F 06/03/19 07:59 Pulse 93 06/03/19 07:59 Resp 20 06/03/19 07:59 BP 151/83 H 06/03/19 07:59 Pulse Ox 91 L 06/03/19 08:00 Weight - Most Recent: 117.843 kg I&O - Last 24 Hours: Intake & Output 06/02/19 06/03/19 06/03/19 22:59 06:59 14:59 Intake Total 800 Output Total 400 Balance 400 Lab Results Last 24 Hours: Laboratory Results - last 24 hr 06/02/19 06/02/19 06/03/19 Range/Units 20:00 20:00 07:45 WBC 17.3 H D 16.1 H (4.0-11.0) K/uL RBC 4.98 4.77 (4.50-6.50) M/uL Hgb 14.5 13.7 (13.0-18.0) g/dL Hct 43.8 41.6 (40.0-54.0) % MCV 88 87 (76-96) fL MCH 29.1 28.7 (27.0-32.0) pg MCHC 33.1 32.9 (31.0-35.0) g/dL RDW 16.1 H 16.1 H (11.0-16.0) % Plt Count 158 D 155 (150-400) K/uL MPV 10.9 H 10.6 H (6.0-10.0) fL Neut % (Auto) 93.8 H 92.8 H (45.0-70.0) % Lymph % (Auto) 1.5 L 1.6 L (20.0-40.0) % [place] % (Auto) 4.4 5.3 (3.0-10.0) % Eos % (Auto) 0.2 L 0.2 L (1.0-5.0) % Baso % (Auto) 0.1 0.1 (0.0-0.5) % Neut # (Auto) 16.25 H 14.90 H (2.00-7.50) K/uL Lymph # (Auto) 0.26 L 0.25 L (1.50-4.00) K/uL [place] # (Auto) 0.77 0.85 H (0.20-0.80) K/uL Eos # (Auto) 0.04 0.04 (0.04-0.40) K/uL Baso # (Auto) 0.01 L 0.01 L (0.02-0.10) K/uL PT (9.0-11.5) sec INR (1.0-3.5) Sodium 135 L (136-145) mmol/L Potassium 4.3 (3.5-5.1) mmol/L Chloride 96 L (98-107) mmol/L Carbon Dioxide 29.5 (21.0-32.0) mmol/L Anion Gap 13.8 (5.0-15.0) mmol/L BUN 45 H D (8-26) mg/dL Creatinine 1.64 H (0.70-1.30) mg/dL Est Cr Clr Drug Dosing 34.71 mL/min Estimated GFR (MDRD) 41 L (>60) MLS/MIN BUN/Creatinine Ratio 27.4 H (6-25) Glucose 212 H D (74-100) mg/dL POC Glucose (74-110) mg/dL Calcium 9.3 (8.5-10.1) mg/dL B-Natriuretic Peptide 6660 H D (0-450) pg/mL 06/03/19 06/03/19 06/03/19 Range/Units 07:52 11:08 11:08 WBC (4.0-11.0) K/uL RBC (4.50-6.50) M/uL Hgb (13.0-18.0) g/dL Hct (40.0-54.0) % MCV (76-96) fL MCH (27.0-32.0) pg MCHC (31.0-35.0) g/dL RDW (11.0-16.0) % Plt Count (150-400) K/uL MPV (6.0-10.0) fL Neut % (Auto) (45.0-70.0) % Lymph % (Auto) (20.0-40.0) % [place] % (Auto) (3.0-10.0) % Eos % (Auto) (1.0-5.0) % Baso % (Auto) (0.0-0.5) % Neut # (Auto) (2.00-7.50) K/uL Lymph # (Auto) (1.50-4.00) K/uL [place] # (Auto) (0.20-0.80) K/uL Eos # (Auto) (0.04-0.40) K/uL Baso # (Auto) (0.02-0.10) K/uL PT 44.4 H D (9.0-11.5) sec INR 4.8 H* D (1.0-3.5) Sodium 130 L (136-145) mmol/L Potassium 4.2 (3.5-5.1) mmol/L Chloride 94 L (98-107) mmol/L Carbon Dioxide 32.1 H (21.0-32.0) mmol/L Anion Gap 8.1 (5.0-15.0) mmol/L BUN 50 H (8-26) mg/dL Creatinine 1.61 H (0.70-1.30) mg/dL Est Cr Clr Drug Dosing 35.35 mL/min Estimated GFR (MDRD) 42 L (>60) MLS/MIN BUN/Creatinine Ratio 31.1 H (6-25) Glucose 253 H (74-100) mg/dL POC Glucose 217 H (74-110) mg/dL Calcium 8.8 (8.5-10.1) mg/dL B-Natriuretic Peptide (0-450) pg/mL Joshua Results Last 24 Hours: Microbiology 06/02/19 20:29 Aerobic Blood Culture - Preliminary Blood Gram Positive Cocci 06/02/19 20:44 Influenza Type A Antigen Screen - Final Nasal Aspirate, Unspecified NEGATIVE INFLUENZA A VIRUS AG REFERENCE RANGE: NEGATIVE Influenza Type B Antigen Screen - Final NEGATIVE INFLUENZA B VIRUS AG REFERENCE RANGE: NEGATIVE Med Orders - Current: Current Medications Albuterol/Ipratropium (Duoneb 3.0-0.5 Mg/3 Ml) 3 ml NEB Q6H [facility] Last Admin: 06/03/19 11:20 Dose: 3 ml Furosemide (Lasix) 40 mg IVPUSH BID [facility] Last Admin: 06/03/19 08:30 Dose: 40 mg Piperacillin Sod/Tazobactam (Sod 3.375 gm/ Sodium Chloride) 100 mls @ 100 mls/ hr IV Q6H [facility] Last Admin: 06/03/19 09:38 Dose: 100 mls/hr Vancomycin HCl 1.2 gm/ Sodium (Chloride) 250 mls @ 167 mls/hr IV ONETIME ONE Stop: 06/03/19 14:03 Discontinued Medications Albuterol/Ipratropium (Duoneb 3.0-0.5 Mg/3 Ml) 3 ml NEB ONETIME ONE Stop: 06/02/19 19:44 Last Admin: 06/02/19 20:09 Dose: 3 ml Furosemide (Lasix) 40 mg IVPUSH NOW ONE Stop: 06/03/19 11:29 Last Admin: 06/03/19 11:28 Dose: 40 mg Insulin Aspart (Novolog) 10 unit SUBCUT ONETIME ONE Stop: 06/03/19 11:40 Lorazepam (Ativan) 0.5 mg IVPUSH ONETIME ONE Stop: 06/03/19 02:53 Last Admin: 06/03/19 03:15 Dose: 0.5 mg Methylprednisolone Sodium Succinate (Solu-Medrol) 125 mg IVPUSH ONETIME ONE Stop: 06/03/19 11:12 Last Admin: 06/03/19 11:15 Dose: 125 mg Sepsis Event Note - Evaluation Sepsis Screening Result: Sepsis Risk - Focused Exam Vital Signs: Vital Signs Temp Pulse Resp BP Pulse Ox Pulse Ox 06/03/19 08:00 91 L 06/03/19 07:59 98.1 F 93 20 151/83 H 91 L 06/03/19 04:00 98.5 F 82 20 136/59 L 91 L Date Exam was Performed: 06/03/19 Time Exam was Performed: 12:49 - Problem List Review Problem List Initiated/Reviewed/Updated: Yes - My Orders Last 24 Hours: My Active Orders 06/03/19 11:15 Albuterol/Ipratropium [DuoNeb 3.0-0.5 MG/3 ML] 3 ml NEB Q6H 06/03/19 12:34 Vancomycin 1.2 gm Sodium Chloride 0.9% [Normal Saline] 250 ml IV ONETIME - Assessment Assessment:: S Patient is a 78 year old white male with COPD, CHF, untreated DM, Gout, Atrial fibrillation and HTN who has been sick for 3 weeks. Was treated as outpatient with Amoxicillin/Clavulinic Acid who thought he was imporved but seemed to worsen over past couple of days. Was admitted last night and is requiring 5 liter NC O2 to maintain sat of 92 . Patient was started on Zoxyn last night and Blood culture with gram positive cocci results this am further results are pending CXR last night with increased density in both lower lungs consistent with infiltrate or atelectasi. "Pneumonia should be considered" . Bilateral plerual effusions with costophrenic angles blunted bilaterally Allergies Sulfa Home Meds duonebs coumadin 5 or 2.5 daily Losartan 50 BID Lasix 40 BID Allopurinal 100mg TID Admission meds duonebs PRN Lasix IV 40 BID Zosyn 3.375 Q6H Plan: 1 Pneumonia with Sepsis pt treated with Zosyn Q6H and started on Vancomycin 1.2 g IV prior to transfer. Gram positive Cocci growing on the blood culture. Plan to transfer to [facility]. Discussed plan with Dr. Jamison who has agreed to accept the patient with plan to admit to ICU. 2. CHF will continue Lasix BID 3. COPD will treat with 1 dose of 125mg of Solumedrol Continue nebs Q6H 4. Diabetes Mellitus untreated up until now. treated with 10u of Novolog SC at 1200pm today, pt has been tolerated a solid diet and liquids up until this point 5. Afib On coumadin, will hold for now due to an INR of 4.8. - Plan Plan:: E hospitalist collaboration: I discussed in detail with Provider Trevon KENNY 78-year-old male admitted from the ED for shortness of breath and hypoxia. He does have underlying COPD and CHF and has baseline chronic hypoxia with O2 of 3 to 4 L and afib on chronic anticoagulation. He has had increasing symptoms over 3 weeks. He has completed a course of steroids and oral antibiotics. He was given [address]ol neb treatments on the way to the ED via ambulance staff. On arrival he was satting 90% on 5 L. Prior to coming to the ED patient had already doubled his dose of Lasix up to a total of 80 mg. On arrival to the ED he was hypertensive with BP into the systolic 170s and now has improved to 120/70. WBC 17, hemoglobin 14.5, sodium 135, potassium 4.3, BUN 45, creatinine 1.64, glucose 220, BNP 6660. Negative for influenza. Per report: No acute suspicion for cover 19 has [place] been [place] and no exposures and no travel. CXR I attempted to view but freezes in the EMR, per report bibasilar pneumonia and some effusions. I was not able to see patient on camera (technology issue) but clinically patient stable per nursing. Assessment and plan: Pneumonia, acute on chronic hypoxic respiratory failure, COPD exacerbation, CHF exacerbation. Patient currently is on Zosyn and will continue on renally dosed (patient had appropriate oral antibiotics but has not improved). Continue nebs. Consider further steroids, but patient tolentino been on in the outpatient setting. He had already increased his Lasix dose at home prior to arriving to the ED and will hold on further Lasix tonite as clinically patient is stable on 5 L with baseline O2 3 to 4 L. Repeat renal function in the a.m. and monitor electrolytes and further Lasix tomorrow IV BID and consider increasing Lasix dose further if needed. Renal function some CKD with cr 1.5 on 07/21/18. Monitor urine output. INR in the AM for his Coumadin dosing. Nursing will call if patient becomes more sob and would consider adding steroids and further lasix tonite. Feel free to call ehospitalist with any questions
--- NOTE | 2019-06-05 16:00 | PCM.DCSUM1 ---
Discharge Summary - Hospital Course Free Text/Narrative:: See progress note Diagnosis: Stroke: No - Discharge Data Discharge Date: 06/02/19 Discharge Disposition: DC/Tfer to Acute Hospital 02 Condition: Fair - Referral to Home Health Primary Care Physician: PCP None - Patient Instructions Diet: Diabetic Diet - Discharge Plan *PRESCRIPTION DRUG MONITORING PROGRAM REVIEWED*: Not Applicable *COPY OF PRESCRIPTION DRUG MONITORING REPORT IN PATIENT NOAH: Not Applicable Home Medications: Home Meds Allopurinol [Zyloprim] 100 mg PO TID 12/04/17 [History] Losartan [Cozaar] 50 mg PO BID 12/04/17 [History] Warfarin [Coumadin] 5 mg PO ASDIRECTED 12/04/17 [History] Furosemide [Lasix] 40 mg PO BID #60 tablet 12/12/17 [Rx] Albuterol/Ipratropium [DuoNeb 3.0-0.5 MG/3 ML] 3 ml NEB QID 30 Days #120 neb 12/04 [Rx] Warfarin [Coumadin] 2.5 mg PO ASDIRECTED 06/02/19 [History] Forms: ED Department Discharge Referrals: PCP,None [Primary Care Provider] - - Discharge Summary/Plan Comment DC Time >30 min.: Yes - Patient Data Vitals - Most Recent: Last Vital Signs Temp 1314 F H 06/03/19 13:20 Pulse 93 06/03/19 13:20 Resp 20 06/03/19 13:20 BP 132/55 L 06/03/19 13:20 Pulse Ox 89 L 06/03/19 13:20 Weight - Most Recent: 117.843 kg Med Orders - Current: Current Medications Discontinued Medications Albuterol/Ipratropium (Duoneb 3.0-0.5 Mg/3 Ml) 3 ml NEB ONETIME ONE Stop: 06/02/19 19:44 Last Admin: 06/02/19 20:09 Dose: 3 ml Albuterol/Ipratropium (Duoneb 3.0-0.5 Mg/3 Ml) 3 ml NEB Q6H [facility] Last Admin: 06/03/19 11:20 Dose: 3 ml Furosemide (Lasix) 40 mg IVPUSH BID [facility] Last Admin: 06/03/19 08:30 Dose: 40 mg Furosemide (Lasix) 40 mg IVPUSH NOW ONE Stop: 06/03/19 11:29 Last Admin: 06/03/19 11:28 Dose: 40 mg Piperacillin Sod/Tazobactam (Sod 3.375 gm/ Sodium Chloride) 100 mls @ 100 mls/ hr IV Q6H [facility] Last Admin: 06/03/19 16:46 Dose: Not Given Vancomycin HCl 1.2 gm/ Sodium (Chloride) 250 mls @ 167 mls/hr IV ONETIME ONE Stop: 06/03/19 14:03 Last Admin: 06/03/19 13:00 Dose: 167 mls/hr Insulin Aspart (Novolog) 10 unit SUBCUT ONETIME ONE Stop: 06/03/19 11:40 Last Admin: 06/03/19 11:40 Dose: 10 units Lorazepam (Ativan) 0.5 mg IVPUSH ONETIME ONE Stop: 06/03/19 02:53 Last Admin: 06/03/19 03:15 Dose: 0.5 mg Methylprednisolone Sodium Succinate (Solu-Medrol) 125 mg IVPUSH ONETIME ONE Stop: 06/03/19 11:12 Last Admin: 06/03/19 11:15 Dose: 125 mg
== END 2019-06-03 03:41 | DRG 871 ==
LOC: LB.ED 19:29 → LB.MS 20:38 → UNDOADMIN 21:00 → LB.MS 21:00
PROVIDERS: ADMIT Physician Assistant; ATTEND Physician Assistant
DX: A41.9 Sepsis, unspecified organism (principal); J44.9 Chronic obstructive pulmonary disease, unspecified; J18.9 Pneumonia, unspecified organism; J96.21 Acute and chronic respiratory failure with hypoxia; J44.0 Chronic obstructive pulmonary disease with (acute) lower respiratory infection; Z87.01 Personal history of pneumonia (recurrent); M54.5 Low back pain; J44.1 Chronic obstructive pulmonary disease with (acute) exacerbation; I50.9 Heart failure, unspecified; Z99.81 Dependence on supplemental oxygen; M10.9 Gout, unspecified; E11.9 Type 2 diabetes mellitus without complications; I48.91 Unspecified atrial fibrillation; G47.33 Obstructive sleep apnea (adult) (pediatric); Z99.89 Dependence on other enabling machines and devices; Z88.2 Allergy status to sulfonamides; Z79.01 Long term (current) use of anticoagulants; Z79.51 Long term (current) use of inhaled steroids; Z79.899 Other long term (current) drug therapy
CPT/HCPCS: 36415; 71045; 80048; 82962; 83880; 85025; 85610; 87040; 87077; 87804; 87804-59; 99285-25; A0425; A0429; J1940; J2060; J2543; J2930; J3370; J7050; J7620-GY